=== PATIENT | male | born 1940 | race Caucasian/White ===

== ENCOUNTER 2017-08-27 02:11 | Inpatient (IN) | payer MEDICARE ==
[2017-08-27] MEDS ORDERED: NITROGLYCERIN SL TABS 0.4 MG TAB SUBLINGUAL PRN (03:26)
--- NOTE | 2017-08-27 03:27 | ED ---
General Adult HPI - General Chief complaint: Arrhythmia/Palpitations Stated complaint: Afib Time Seen by Provider: 08/27/17 02:51 Source: patient, EMS Mode of arrival: EMS Limitations: no limitations - Related Data Home Medications Medication Instructions Recorded Confirmed Warfarin Sodium [Warfarin Sodium] 5 mg PO DAILY 08/27/17 08/27/17 Allergies Allergy/AdvReac Type Severity Reaction Status Date / Time No Known Allergies Allergy Verified 08/27/17 02:18 Review of Systems ROS Statement: Those systems with pertinent positive or pertinent negative responses have been documented in the HPI. ROS Other: All systems not noted in ROS Statement are negative. Past Medical History Past Medical History: Atrial Fibrillation, Hyperlipidemia, Hypertension, Prostate Disorder, Sleep Apnea/CPAP/BIPAP Additional Past Medical History / Comment(s): hx pleural thickening, cpap, mesothelioma History of Any Multi-Drug Resistant Organisms: None Reported Past Surgical History: Orthopedic Surgery, Tonsillectomy Additional Past Surgical History / Comment(s): rt knee scope, lt eye cataract Past Anesthesia/Blood Transfusion Reactions: Motion Sickness Past Psychological History: No Psychological Hx Reported Smoking Status: Never smoker Past Alcohol Use History: None Reported Past Drug Use History: None Reported - Past Family History Mother Family Medical History: Cancer Additional Family Medical History / Comment(s): cancer Father Family Medical History: Pneumonia Additional Family Medical History / Comment(s): Mesothelioma General Exam Limitations: no limitations Course Vital Signs 08/27/17 02:15 Temperature 99.4 F Pulse Rate 74 Respiratory 20 Rate Blood Pressure 112/79 O2 Sat by Pulse 92 L Oximetry EKG Findings - EKG Comments: EKG Findings:: EKG shows A. fib with RVR rate 108, QRS 106, QTc 407 Disposition Clinical Impression: Atrial fibrillation with RVR Disposition: ADMITTED IP TO THIS HOSP Condition: Fair Is patient prescribed a controlled substance at d/c from ED?: No
[2017-08-27] MEDS: DILTIAZEM 50 MG in SODIUM CHLORIDE 0.9% 40 ML IV ONE ×2 (03:53→06:02)
[2017-08-27 04:48] LABS: Creatine Kinase <20 U/L (55-170)
[2017-08-27 05:00] LABS: Creatine Kinase MB <0.2 ng/mL (0.0-2.4); Troponin I <0.012 ng/mL (0.000-0.034)
[2017-08-27 05:25] VITALS: BMI 35.2
[2017-08-27] MEDS: ASPIRIN 325 MG TAB PO SCH (08:30)
[2017-08-27] MEDS: METOPROLOL TARTRATE 25 MG TAB PO SCH ×2 (08:30→19:32)
[2017-08-27] MEDS: DILTIAZEM 50 MG in SODIUM CHLORIDE 0.9% 40 ML IV SCH ×3 (09:59→21:46)
[2017-08-27] MEDS: VERAPAMIL 40 MG TAB PO SCH ×3 (09:59→19:32)
[2017-08-27 10:13] LABS: Creatine Kinase <20 U/L (55-170)
[2017-08-27 10:24] LABS: Creatine Kinase MB <0.2 ng/mL (0.0-2.4); Troponin I <0.012 ng/mL (0.000-0.034)
[2017-08-27] MEDS ORDERED: ALPRAZolam 0.25 MG TAB PO PRN (11:51)
[2017-08-27] MEDS ORDERED: traMADol 50 MG TAB PO PRN (11:51)
[2017-08-27] MEDS: ALBUTEROL NEBULIZED 2.5 MG/3 ML INHALATION PRN (12:00)
--- NOTE | 2017-08-27 13:17 | P.CRDCN ---
History of Present Illness History of present illness: Patient transferred from an outside hospital for shortness of breath. He is found to be in atrial fibrillation with RVR Denied any chest discomfort Review of systems: No fever chills or rigors, no cough, phlegm or expectoration , no nausea, vomiting or diarrhea, no hematuria, dysuria, no musculoskeletal complaints, no strokes or seizures, no skin lesions. Medical history of mesothelioma, right moderate pleural effusion, pleural calcifications, paroxysmal atrial fibrillation with RVR, dyslipidemia, hypertension, sleep apnea using a BiPAP Medications at home include warfarin Primary precision farming coordinator is Dr. Linda On examination his temperature was 99.4F upon admission, pulse rate was about 108 beats a minute irregular on ECG atrial fibrillation noted Blood pressure 112/79 mmHg Breath sounds are reduced bilaterally especially the right base Heart sounds S1 and S2 are irregular no murmurs no gallop Abdomen soft nontender Patient is lying flat in bed comfortable Labs are reviewed [place] enzymes are normal Impression Atrial fibrillation with RVR History of mesothelioma, pleural calcifications and right moderate pleural effusion Suggest Oral verapamil 40 mg 3 times a day Continue and granulation Coumadin We will stop IV diltiazem by tomorrow and switch to long-acting verapamil Past Medical History Past Medical History: Atrial Fibrillation, Hyperlipidemia, Hypertension, Prostate Disorder, Sleep Apnea/CPAP/BIPAP Additional Past Medical History / Comment(s): hx pleural thickening, cpap, mesothelioma History of Any Multi-Drug Resistant Organisms: None Reported Past Surgical History: Orthopedic Surgery, Tonsillectomy Additional Past Surgical History / Comment(s): rt knee scope, lt eye cataract Past Anesthesia/Blood Transfusion Reactions: Motion Sickness Past Psychological History: No Psychological Hx Reported Smoking Status: Never smoker Past Alcohol Use History: None Reported Past Drug Use History: None Reported - Past Family History Mother Family Medical History: Cancer Additional Family Medical History / Comment(s): cancer Father Family Medical History: Pneumonia Additional Family Medical History / Comment(s): Mesothelioma Medications and Allergies Home Medications Medication Instructions Recorded Confirmed Type ALPRAZolam [Xanax] 0.25 mg PO DAILY PRN 08/27/17 08/27/17 History Albuterol Inhaler [Ventolin Hfa 1 - 2 puff INHALATION RT-Q6H PRN 08/27/17 History Inhaler] Diltiazem HCl [Cartia Xt] 180 mg PO DAILY 08/27/17 08/27/17 History RX: Folic Acid 1 mg PO DAILY 08/27/17 08/27/17 History RX: Mirtazapine 7.5 mg PO HS 08/27/17 08/27/17 History Warfarin Sodium [Warfarin Sodium] 5 mg PO DAILY@1700 08/27/17 08/27/17 History traMADol HCL [Ultram] 50 mg PO Q6H PRN 08/27/17 08/27/17 History Allergies Allergy/AdvReac Type Severity Reaction Status Date / Time No Known Allergies Allergy Verified 08/27/17 09:09 Physical Exam Vitals: Vital Signs Temp Pulse Pulse Resp BP BP Pulse Ox 08/27/17 12:09 88 08/27/17 12:00 80 81 20 95/68 95 08/27/17 08:00 98.1 F 94 18 107/62 94 L 08/27/17 05:00 97.5 F L 85 18 115/75 95 08/27/17 02:15 99.4 F 74 20 112/79 92 L Intake and Output 08/26/17 08/27/17 08/27/17 22:59 06:59 14:59 Intake Total 32.25 Balance 32.25 Intake: Intake, IV Titration 32.25 Amount Diltiazem 50 mg In Sodium 32.25 Chloride 0.9% 40 ml @ 15 MG/HR 15 mls/hr IV . Q3H20M [facility] Rx#:[id number] Other: # Voids 1 1 Weight 117.934 kg Results Cardiac Enzymes 08/27/17 08/27/17 Range/Units 03:40 09:28 CK-MB (CK-2) <0.2 <0.2 (0.0-2.4) ng/mL Troponin I <0.012 <0.012 (0.000-0.034) ng/mL Current Medications Generic Name Dose Route Start Last Admin Trade Name Freq PRN Reason Stop Dose Admin Albuterol Sulfate 2.5 mg 08/27/17 11:51 08/27/17 12:00 Ventolin Nebulized INHALATION 2.5 mg RT-Q6H PRN Administration SOB/BREATHING PAIN Alprazolam 0.25 mg 08/27/17 11:51 Xanax PO DAILY PRN Anxiety Aspirin 325 mg 08/28/17 09:00 Aspirin PO DAILY [facility] Folic Acid 1 mg 08/28/17 12:00 Folic Acid PO DAILY@1200 [facility] Diltiazem HCl 50 mg/ Sodium 50 mls @ 10 mls/hr 08/27/17 08:45 08/27/17 09:59 Chloride IV 10 mg/hr .Q5H [facility] 10 mls/hr 10 MG/HR Administration Metoprolol Tartrate 25 mg 08/27/17 09:00 08/27/17 08:30 Lopressor PO 25 mg BID [facility] Administration Mirtazapine 7.5 mg 08/27/17 21:00 Remeron PO HS [facility] Nitroglycerin 0.4 mg 08/27/17 03:26 Nitrostat SUBLINGUAL Q5M PRN Chest Pain Tramadol HCl 50 mg 08/27/17 11:51 08/27/17 12:27 Ultram PO 50 mg Q6H PRN Administration Pain Verapamil HCl 40 mg 08/27/17 09:00 08/27/17 09:59 Isoptin PO 40 mg TID [facility] Administration Warfarin Sodium 5 mg 08/27/17 17:00 Coumadin PO DAILY@1700 [facility] Intake and Output 08/26/17 08/27/17 08/27/17 22:59 06:59 14:59 Intake Total 32.25 Balance 32.25 Intake: Intake, IV Titration 32.25 Amount Diltiazem 50 mg In Sodium 32.25 Chloride 0.9% 40 ml @ 15 MG/HR 15 mls/hr IV . Q3H20M [facility] Rx#:[id number] Other: # Voids 1 1 Weight 117.934 kg
[2017-08-27 13:20] LABS: INR 2.8 (<1.2); Prothrombin Time 25.4 sec (9.0-12.0)
--- NOTE | 2017-08-27 16:43 | P.HPIM ---
History of Present Illness H&P Date: 08/27/17 Chief Complaint: Shortness of breath Patient is a 77-year-old male with a known history of atrial fibrillation on anticoagulation and mesothelioma diagnosed fairly at this year obstructive sleep apnea initially presented to [facility] with complaints of difficulty breathing and weakness for the past 2 days. Patient also has nausea no episodes of vomiting. Patient describes some diffuse abdominal pain. Otherwise denied any chest pain. No recent illness and diarrhea. Patient is currently getting chemotherapy, last chemotherapy at the [facility] was on Sunday. Patient also has been having decreased appetite for the past 2 days. Patient has not been eating very well otherwise. No fever no chills. No headache or dizziness or lightheadedness. Chest x-ray showed redemonstration of a moderate layering right pleural effusion and right basilar airspace disease likely compressive atelectasis as well as extensive pleural thickening and pleural calcified plaques compatible with patient's known diagnosis of mesothelioma. CT abdomen and pelvis with contrast showed extensive pleural calcification. Right pleural effusion consistent with history of mesothelioma. No acute abnormality seen within the abdomen and pelvis. Sigmoid diverticulosis. Renal left cortical cyst. BNP 1400 Troponin negative. EKG showed atrial fibrillation with rapid ventricular rate. INR 2.8 Laboratory data and imaging studies were reviewed from [facility]. Review of Systems Constitutional: Patient denies any fever or chills . Generalized weakness.. Abdomen: Patient denied nausea vomiting and diarrhea and abdominal pain. Cardiovascular: Patient denies any chest pain or short of breath no palpitations. Respiratory: patient denied any cough is from production. No shortness of breath Neurologic: Patient denied any numbness or tingling headache. Musculoskeletal: Patient denies any complaints of joint swelling or deformity. Skin: Negative Psychiatric: Negative Endocrine: No heat or cold intolerance. No recent weight gain. Genitourinary: No dysuria or hematuria. All other 14 point ROS negative except the above Past Medical History Past Medical History: Atrial Fibrillation, Hyperlipidemia, Hypertension, Prostate Disorder, Sleep Apnea/CPAP/BIPAP Additional Past Medical History / Comment(s): hx pleural thickening, cpap, mesothelioma History of Any Multi-Drug Resistant Organisms: None Reported Past Surgical History: Orthopedic Surgery, Tonsillectomy Additional Past Surgical History / Comment(s): rt knee scope, lt eye cataract Past Anesthesia/Blood Transfusion Reactions: Motion Sickness Past Psychological History: No Psychological Hx Reported Smoking Status: Never smoker Past Alcohol Use History: None Reported Past Drug Use History: None Reported - Past Family History Mother Family Medical History: Cancer Additional Family Medical History / Comment(s): cancer Father Family Medical History: Pneumonia Additional Family Medical History / Comment(s): Mesothelioma Medications and Allergies Home Medications Medication Instructions Recorded Confirmed Type ALPRAZolam [Xanax] 0.25 mg PO DAILY PRN 08/27/17 08/27/17 History Albuterol Inhaler [Ventolin Hfa 1 - 2 puff INHALATION RT-Q6H PRN 08/27/17 History Inhaler] Diltiazem HCl [Cartia Xt] 180 mg PO DAILY 08/27/17 08/27/17 History Folic Acid 1 mg PO DAILY 08/27/17 08/27/17 History Mirtazapine 7.5 mg PO HS 08/27/17 08/27/17 History Warfarin Sodium [Warfarin Sodium] 5 mg PO DAILY@1700 08/27/17 08/27/17 History traMADol HCL [Ultram] 50 mg PO Q6H PRN 08/27/17 08/27/17 History Allergies Allergy/AdvReac Type Severity Reaction Status Date / Time No Known Allergies Allergy Verified 08/27/17 09:09 Physical Exam Vitals: Vital Signs Temp Pulse Pulse Resp BP BP Pulse Ox 08/27/17 08:00 98.1 F 94 18 107/62 94 L 08/27/17 05:00 97.5 F L 85 18 115/75 95 08/27/17 02:15 99.4 F 74 20 112/79 92 L Intake and Output 08/26/17 08/27/17 08/27/17 22:59 06:59 14:59 Intake Total 32.25 Balance 32.25 Intake: Intake, IV Titration 32.25 Amount Diltiazem 50 mg In Sodium 32.25 Chloride 0.9% 40 ml @ 15 MG/HR 15 mls/hr IV . Q3H20M [facility] Rx#:[id number] Other: # Voids 1 1 Weight 117.934 kg PHYSICAL EXAMINATION: Patient is lying in the bed comfortably, no acute distress, awake alert and oriented.. HEENT: Normocephalic. Neck is supple. Pupils reactive. Nostrils clear. Oral cavity is moist. Ears reveal no drainage. Neck reveals no JVD, carotid bruits, or thyromegaly. CHEST EXAMINATION: Trachea is central. Symmetrical expansion. Left basilar crackles and rhonchi. Expiratory wheezing mainly upper in airway. Lung campos clear to auscultation and percussion. CARDIAC: Normal S1, S2 with no gallops. No murmurs . Irregularly irregular rhythm ABDOMEN: Soft. Bowel sounds normal. No organomegaly. No abdominal bruits. Extremities: reveal no edema. No clubbing or cyanosis Neurologically awake, alert, oriented x3 with well-coordinated movements. No focal deficits noted Skin: No rash or skin lesions. Psychiatric: Cooperative. Nonsuicidal Musculoskeletal: No joint swelling or deformity. Normal range of motion. Results Labs: Abnormal Lab Results - Last 24 Hours (Table) 08/27/17 08/27/17 Range/Units 03:40 09:28 Total Creatine Kinase <20 L <20 L (55-170) U/L Thrombosis Risk Factor Assmnt - DVT/VTE Prophylaxis DVT/VTE Prophylaxis: Pharmacologic Prophylaxis ordered - Choose All That Apply Any of the Below Risk Factors Present?: Yes Each Factor Represents 1 point: Obesity (BMI >25) Other Risk Factors: Yes Each Risk Factor Represents 3 Points: Age 75 years or older Other congenital or acquired thrombophilia - If yes, enter type in comment: No Thrombosis Risk Factor Assessment Total Risk Factor Score: 4 Thrombosis Risk Factor Assessment Level: Moderate Risk Assessment and Plan Assessment: Atrial fibrillation with rapid regular rate. Currently on Cardizem drip. Mesothelioma with extensive pleural calcification. Currently undergoing chemotherapy at [facility] last on 08/21/2017 Obstructive sleep apnea Morbid obesity Plan: Patient will be continued on Cardizem drip. Otherwise patient was started on verapamil as per cardiology recommendations. Patient is also on metoprolol. Continue the anti-coagulation with Coumadin. Follow-up INR. Continue the current management and further recommendations based on the clinical course. Discussed with his son at bedside in detail. Time with Patient: Greater than 30
[2017-08-27] MEDS: WARFARIN 5 MG TAB PO SCH (16:46)
[2017-08-27] MEDS: MIRTAZAPINE 15 MG TAB PO SCH (19:32)
[2017-08-28 05:26] LABS: Cholesterol 173 mg/dL (<200); HDL Cholesterol 40 mg/dL (40-60); LDL Cholesterol,Calculated 113 mg/dL (0-99); Triglycerides 102 mg/dL (<150)
[2017-08-28] MEDS ORDERED: VERAPAMIL SR 120 MG TABLET.ER PO SCH (09:00)
[2017-08-28] MEDS: DILTIAZEM 50 MG in SODIUM CHLORIDE 0.9% 40 ML IV SCH (09:49)
[2017-08-28] MEDS: ASPIRIN 325 MG TAB PO SCH ×2 (09:50→10:46)
[2017-08-28] MEDS: METOPROLOL TARTRATE 25 MG TAB PO SCH ×2 (09:50→20:32)
[2017-08-28] MEDS: ALBUTEROL NEBULIZED 2.5 MG/3 ML INHALATION PRN ×2 (11:03→19:01)
--- NOTE | 2017-08-28 14:25 | P.PN ---
Subjective Progress Note Date: 08/28/17 Principal diagnosis: A. adrianna This is a 77-year-old gentleman with known history of atrial fibrillation, on anticoagulation, history of mesothelioma, obstructive sleep apnea, currently undergoing chemotherapy. He initially presented to [facility] with complaints of difficulty in breathing with associated weakness. Cardiology consultation was requested because of atrial fibrillation with a rapid ventricular response. The patient was seen in consultation by Dr. Bazan yesterday, today we initiated verapamil SR 180 mg daily, we're weaning down the Cardizem drip. The patient's primary singing teacher is Dr. Linda. Patient continues to be in atrial fibrillation, his rate today is under much better control. Chest x-ray performed this morning is still pending. INR 2.8. Objective - Vital Signs Vital signs: Vital Signs Temp 98.8 F 08/28/17 08:00 Pulse 104 H 08/28/17 11:30 Resp 19 08/28/17 11:30 BP 110/69 08/28/17 11:30 Pulse Ox 94 L 08/28/17 11:30 Intake & Output 08/27/17 08/28/17 08/28/17 18:59 06:59 18:59 Intake Total 168 50 Balance 168 50 Weight 117.934 kg 121.6 kg Intake: Intake, IV Titration 50 50 Amount Diltiazem 50 mg In Sodium 50 50 Chloride 0.9% 40 ml @ 10 MG/HR 10 mls/hr IV .Q5H [facility] Rx#:[id number] Oral 118 Other: Voiding Method Toilet # Voids 1 2 # Bowel Movements 0 - Exam PHYSICAL EXAMINATION: GENERAL: 77-year-old gentleman in no apparent distress at the time of my examination. HEENT: Head is atraumatic, normocephalic. Pupils equal, round. Sclera anicteric. Conjunctiva are clear. Mucous membranes of the mouth are moist. Neck is supple. There is no elevated jugular venous pressure.] bruit is heard. HEART EXAMINATION: Heart S1 and S2 irregularly irregular CHEST EXAMINATION: On's reveal diminished air entry to bilateral bases. Right greater than the left. ABDOMEN: Soft, nontender. Bowel sounds are heard. No organomegaly noted. EXTREMITIES: 2+ peripheral pulses with no evidence of peripheral edema and no calf tenderness noted. NEUROLOGIC patient is awake, alert and oriented -3. . - Labs Labs: Abnormal Lab Results - Last 24 Hours (Table) 08/27/17 Range/Units 09:28 LDL Cholesterol, Calc 113 H (0-99) mg/dL Assessment and Plan Plan: Assessment and plan #1 chronic persistent atrial fibrillation #2 mesothelioma currently receiving chemotherapy #3 hypertension #4 hyperlipidemia Number 5 sleep apnea Plan We will start the patient on verapamil SR 180 mg daily and discontinue the Cardizem drip. Continue Coumadin for anticoagulation. From cardiology's perspective, patient can be discharged once cleared by primary, he can follow- up with his singing teacher post discharge. DNP note has been reviewed, I agree with a documented findings and plan of care. Patient was seen and examined.
--- NOTE | 2017-08-28 15:42 | P.PN ---
Subjective 77-year-old with history of mesothelioma chronic pleural effusion does not using any oxygen at home came in with difficulty breathing found to be in atrial fibrillation patient is presently on 2 L of oxygen and doesn't use any oxygen at home after the chest x-ray which is showing pleural effusions bilaterally significant on the right side. Patient appears to have chronic pleural effusion was evaluated in the past in [facility] by cardiac thoracic surgery. But patient never used oxygen. Patient atrial fibrillation is well controlled and patient is presently an increase the dose of Verapamil. Patient feels much better with AN nighttime as well. Patient is still short of breath. Constitutional: Denied any fatigue denied any fever. Cardio vascular: denied any chest pain, palpitations Gastrointestinal denied any nausea vomiting Pulmonary: As mentioned in HPI Neurologic denied any new focal deficits Objective - Vital Signs Vital signs: Vital Signs Temp 98.8 F 08/28/17 08:00 Pulse 104 H 08/28/17 11:30 Resp 19 08/28/17 11:30 BP 110/69 08/28/17 11:30 Pulse Ox 94 L 08/28/17 11:30 Intake & Output 08/27/17 08/28/17 08/28/17 18:59 06:59 18:59 Intake Total 168 50 Output Total 300 Balance 168 50 -300 Weight 117.934 kg 121.6 kg Intake: Intake, IV Titration 50 50 Amount Diltiazem 50 mg In Sodium 50 50 Chloride 0.9% 40 ml @ 10 MG/HR 10 mls/hr IV .Q5H [facility] Rx#:[id number] Oral 118 Output: Urine 300 Other: Voiding Method Toilet # Voids 1 2 # Bowel Movements 0 - Exam PHYSICAL EXAMINATION: Patient is lying in the bed comfortably, no acute distress, awake alert and oriented.. HEENT: Normocephalic. Neck is supple. Pupils reactive. Nostrils clear. Oral cavity is moist. Ears reveal no drainage. Neck reveals no JVD, carotid bruits, or thyromegaly. CHEST EXAMINATION: Trachea is central. Symmetrical expansion. Left basilar crackles and rhonchi. Expiratory wheezing mainly upper in airway. Lung campos clear to auscultation and percussion. CARDIAC: Normal S1, S2 with no gallops. No murmurs . Irregularly irregular rhythm ABDOMEN: Soft. Bowel sounds normal. No organomegaly. No abdominal bruits. Extremities: reveal no edema. No clubbing or cyanosis Neurologically awake, alert, oriented x3 with well-coordinated movements. No focal deficits noted Skin: No rash or skin lesions. Psychiatric: Cooperative. Nonsuicidal Musculoskeletal: No joint swelling or deformity. Normal range of motion. - Labs Labs: Abnormal Lab Results - Last 24 Hours (Table) 08/27/17 Range/Units 09:28 LDL Cholesterol, Calc 113 H (0-99) mg/dL Assessment and Plan Plan: Acute hypoxic respiratory failure: Secondary to bilateral pleural effusions predominantly in the right side, we'll consult cardio thoracic surgery and pulmonary services for this. Atrial fibrillation may have contributed to his shortness of breath presently rate controlled in spite of which patient remains on 2 L Floxin -A. fib with rapid ventricular rate, presently rate controlled on increased dose of verapamil which will be continued -Mesothelioma with extensive pleural calcifications and pleural effusions as mentioned above. Follows up at [facility], last chemotherapy was on Sunday -Hypertension -Hyperlipidemia -Sleep apnea and uses CPAP machine at home -Benign prostatic hypertrophy
--- NOTE | 2017-08-28 15:45 | XR ---
EXAMINATION TYPE: XR chest 2V DATE OF EXAM: 08/28/2017 COMPARISON: NONE HISTORY: Shortness of breath and mesothelioma TECHNIQUE: Frontal and lateral views of the chest are obtained. FINDINGS: Lobular soft tissue is pleural-based within the right chest. Calcified pleural plaques are extensive. No evident pneumothorax. Heart is enlarged. There are overlying cardiac leads. Increased density obscures the right hemidiaphragm. Interstitium is mildly increased. IMPRESSION: Findings compatible with patient's history of mesothelioma, asbestos related disease. Th ere may be associated pneumonia versus an effusion with associated atelectasis, correlate.
[2017-08-28] MEDS: WARFARIN 5 MG TAB PO SCH (16:12)
[2017-08-28] MEDS: FOLIC ACID 1 MG TAB PO SCH (16:12)
[2017-08-28] MEDS: MIRTAZAPINE 15 MG TAB PO SCH (20:32)
[2017-08-29 07:20] LABS: HCT 30.6 % (39.0-53.0); HGB 10.1 gm/dL (13.0-17.5); MCH 31.2 pg (25.0-35.0); MCHC 33.2 g/dL (31.0-37.0); Mean Platelet Volume 6.8; Platelet Count 119 k/uL (150-450); RBC 3.25 m/uL (4.30-5.90); RDW 15.6 % (11.5-15.5); WBC 3.3 k/uL (3.8-10.6)
[2017-08-29 07:31] LABS: Blood Urea Nitrogen 14 mg/dL (9-20); Calcium 8.3 mg/dL (8.4-10.2); Carbon Dioxide 28 mmol/L (22-30); Glucose 119 mg/dL (74-99); Potassium 4.1 mmol/L (3.5-5.1); Sodium 137 mmol/L (137-145)
[2017-08-29 07:44] LABS: Anion Gap 10 mmol/L; Chloride 99 mmol/L (98-107)
[2017-08-29] MEDS ORDERED: ONDANSETRON ODT 4 MG TAB PO PRN (08:07)
[2017-08-29 08:26] LABS: Prothrombin Time 35.7 sec (9.0-12.0)
[2017-08-29] MEDS ORDERED: VERAPAMIL SR 180 MG TABLET.ER PO SCH (09:00)
[2017-08-29] MEDS ORDERED: ASPIRIN 81 MG PO SCH (09:00)
[2017-08-29] MEDS: METOPROLOL TARTRATE 25 MG TAB PO SCH (10:25)
[2017-08-29 10:59] VITALS: RESP 18
--- NOTE | 2017-08-29 12:50 | P.CNPUL ---
History of Present Illness Consult date: 08/29/17 Requesting physician: Kari Cummings Reason for consult: dyspnea, abnormal CXR/CT Chief complaint: Shortness of breath, palpitations History of present illness: This is a very pleasant 77-year-old gentleman who follows with Dr. Lopez as his primary care physician. He has a history of atrial fibrillation anticoagulated with warfarin, hyperlipidemia, hypertension, prostate disorder, obstructive sleep apnea and utilizes CPAP in the outpatient setting. He follows with Dr. Matthews. He also has a history of mesothelioma diagnosed by fine needle aspirate at [facility] in February 2017. He has been followed at the [facility] and was receiving chemotherapy there. He is also followed here at [facility] with Dr. Velasco for radiation treatments to the right upper lobe. He has has loculated right-sided pleural effusion in the [facility] cardiothoracic team has decided not to perform any procedures. He presented here yesterday to the emergency room with complaints of increasing shortness of breath, palpitations and rapid heartbeat. He was admitted for atrial fibrillation with rapid ventricular response. He has been seen and evaluated by cardiology. He is seen today in consultation on the selective care unit. He is awake and alert in no acute distress. His breathing is easier today. His rate is better controlled. His chest x-ray does reveal a findings compatible with mesothelioma and asbestos related disease. There is right chronic pleural effusion. He is utilizing his home CPAP at night. He is currently maintaining good O2 saturations in the upper 90s on 2 L/m per nasal cannula. Currently afebrile. White count 3.3. Hemoglobin 10.1. INR 4.0. Review of Systems Constitutional: Reports weakness Eyes: denies blurred vision, denies decreased vision Ears: bilateral: decreased hearing Ears, nose, mouth and throat: Denies headache, Denies sore throat Cardiovascular: Reports dyspnea on exertion, Reports irregular heart beat, Reports palpitations, Reports rapid heart beat Respiratory: Reports dyspnea, Reports sleep apnea Gastrointestinal: Denies abdominal pain, Denies diarrhea, Denies nausea, Denies vomiting Genitourinary: Reports as per HPI Musculoskeletal: Denies myalgias Integumentary: Denies pruritus, Denies rash Neurological: Denies numbness, Denies weakness Psychiatric: Denies anxiety, Denies depression Endocrine: Denies fatigue, Denies weight change Hematologic/Lymphatic: Reports as per HPI Allergic/Immunologic: Reports as per HPI Past Medical History Past Medical History: Atrial Fibrillation, Hyperlipidemia, Hypertension, Prostate Disorder, Sleep Apnea/CPAP/BIPAP Additional Past Medical History / Comment(s): hx pleural thickening, cpap, mesothelioma History of Any Multi-Drug Resistant Organisms: None Reported Past Surgical History: Orthopedic Surgery, Tonsillectomy Additional Past Surgical History / Comment(s): rt knee scope, lt eye cataract Past Anesthesia/Blood Transfusion Reactions: Motion Sickness Past Psychological History: No Psychological Hx Reported Smoking Status: Never smoker Past Alcohol Use History: None Reported Past Drug Use History: None Reported - Past Family History Mother Family Medical History: Cancer Additional Family Medical History / Comment(s): cancer Father Family Medical History: Pneumonia Additional Family Medical History / Comment(s): Mesothelioma Medications and Allergies Home Medications Medication Instructions Recorded Confirmed Type ALPRAZolam [Xanax] 0.25 mg PO DAILY PRN 08/27/17 08/27/17 History Albuterol Inhaler [Ventolin Hfa 1 - 2 puff INHALATION RT-Q6H PRN 08/27/17 History Inhaler] Diltiazem HCl [Cartia Xt] 180 mg PO DAILY 08/27/17 08/27/17 History Folic Acid 1 mg PO DAILY 08/27/17 08/27/17 History Mirtazapine 7.5 mg PO HS 08/27/17 08/27/17 History Warfarin Sodium [Warfarin Sodium] 5 mg PO DAILY@1700 08/27/17 08/27/17 History traMADol HCL [Ultram] 50 mg PO Q6H PRN 08/27/17 08/27/17 History Allergies Allergy/AdvReac Type Severity Reaction Status Date / Time No Known Allergies Allergy Verified 08/27/17 09:09 Physical Exam Osteopathic Statement: *. No significant issues noted on an osteopathic structural exam other than those noted in the History and Physical/Consult. Vitals: Vital Signs Temp Pulse Pulse Resp BP Pulse Ox 08/29/17 08:00 97.6 F 113 H 18 104/73 96 08/29/17 04:00 99.0 F 108 H 16 123/68 97 08/29/17 00:00 99.3 F 107 H 18 124/67 94 L 08/28/17 20:20 98.9 F 111 H 18 112/68 93 L 08/28/17 19:15 100 08/28/17 19:04 99 08/28/17 16:00 105 H 18 104/65 94 L Intake and Output 08/28/17 08/29/17 08/29/17 22:59 06:59 14:59 Intake Total 480 240 Balance 480 240 Intake: Oral 480 240 Other: Voiding Method Toilet Toilet # Voids 1 1 Weight 120 kg - Constitutional General appearance: obese - EENT Eyes: EOMI, PERRLA ENT: hearing grossly normal Ears: bilateral: normal - Neck Neck: normal ROM Carotids: bilateral: upstroke normal Thyroid: bilateral: normal size - Respiratory Respiratory: right: rales - Cardiovascular Rhythm: irregularly irregular Heart sounds: normal: S1, S2 - Gastrointestinal General gastrointestinal: no organomegaly, soft, no tenderness - Integumentary Integumentary: normal turgor - Neurologic Neurologic: CNII-XII intact - Musculoskeletal Musculoskeletal: gait normal - Psychiatric Psychiatric: A&O x's 3, intact judgment & insight Results - Laboratory Findings CBC and BMP: 08/29/17 06:39 08/29/17 06:39 PT/INR, D-dimer PT 35.7 sec (9.0-12.0) H 08/29/17 07:41 INR 4.0 (<1.2) H 08/29/17 07:41 Abnormal lab findings: Abnormal Labs 08/27/17 08/27/17 08/27/17 03:40 09:28 09:28 WBC RBC Hgb Hct RDW Plt Count PT INR Glucose Calcium Total Creatine Kinase <20 L <20 L LDL Cholesterol, Calc 113 H 08/27/17 08/29/17 08/29/17 12:59 06:39 06:39 WBC 3.3 L RBC 3.25 L Hgb 10.1 L Hct 30.6 L RDW 15.6 H Plt Count 119 L PT 25.4 H INR 2.8 H Glucose 119 H Calcium 8.3 L Total Creatine Kinase LDL Cholesterol, Calc 08/29/17 07:41 WBC RBC Hgb Hct RDW Plt Count PT 35.7 H INR 4.0 H Glucose Calcium Total Creatine Kinase LDL Cholesterol, Calc - Diagnostic Findings Chest x-ray: image reviewed Assessment and Plan Assessment: Impression: #1 Atrial fibrillation with rapid ventricular response. Anticoagulated with warfarin #2 Dyspnea secondary to above. #3 Mesothelioma, currently receiving chemotherapy at the [facility] and radiation therapy here at [facility]. #4 Hypertension. #5 Hyperlipidemia. #6 Prostate disorder. #7 Obstructive sleep apnea utilizing CPAP in the outpatient setting. Plan: The patient was seen and evaluated. He is currently stable from the pulmonary standpoint. No further plans or interventions here in regards to the mesothelioma. He'll continue with his radiation treatments as scheduled. The cardiothoracic team at the [facility] had not planned any further intervention in regards to the right pleural effusion. We will continue with his current treatment plan. Will increase his activity as tolerated. We'll continue to follow. Time with Patient: Greater than 30
--- NOTE | 2017-08-29 13:29 | P.GSCN ---
<Edmond Szymanski - Last Filed: 08/29/17 12:53> History of Present Illness Consult date: 08/29/17 Reason for Consult: Right pleural effusion, mesothelioma. Requesting physician: Ivanna Westfall History of present illness: This is a 77-year-old gentleman who follows with Dr. Green or an outpatient basis. He has a medical history significant for chronic persistent atrial fibrillation on Coumadin therapy at home, hypertension, hyperlipidemia, obesity , obstructive sleep apnea with home CPAP, benign prostatic hypertrophy, and recent diagnosis of mesothelioma which was diagnosed by fine needle aspirate at [facility] in February 2017. He has been following with an oncologist at [facility] where he has been receiving chemotherapy. He has also has received 6 treatments of radiation here at [facility] followed by Dr. Velasco. In July 2016 he was diagnosed with a loculated right pleural effusion which she had seen a cardiothoracic surgeon at [facility] who recommended no surgical intervention at that time. The patient reports that the thoracic surgeon stated that if the fluid was removed his lung would not reexpand. On 08/26/2017 the patient presented to the emergency department at [facility] due to complaints of progressive shortness of breath, 40 pound weight loss since March 2017, an anxiety attack, nausea and complaints of rapid heartbeat with palpitations. He denies any complaints of fever, vomiting, diarrhea, hemoptysis , dizziness or syncope. While in the emergency department a 12-lead EKG was completed which demonstrated atrial fibrillation with RVR. A chest x-ray was also completed which demonstrated findings compatible with a history of mesothelioma and a chronic loculated right pleural effusion. His current lab results show a WBC 3.3, Hgb 10.1, platelet count of 119, troponins less than 0.012 and an INR of 4.0. Due to the patient's presenting symptoms and loculated right pleural effusion a consult was placed to Dr. Bai from cardiothoracic surgery. Review of Systems A 14 point review of systems was completed and was negative except as mentioned in HPI. Past Medical History Past Medical History: Atrial Fibrillation (On home Coumadin.), Cancer, Hyperlipidemia, Hypertension, Prostate Disorder, Respiratory Disorder, Sleep Apnea/CPAP/BIPAP Additional Past Medical History / Comment(s): hx pleural thickening, home CPAP, mesothelioma History of Any Multi-Drug Resistant Organisms: None Reported Past Surgical History: Orthopedic Surgery, Tonsillectomy Additional Past Surgical History / Comment(s): rt knee scope, lt eye cataract, hemorrhoidectomy Past Anesthesia/Blood Transfusion Reactions: Motion Sickness Past Psychological History: No Psychological Hx Reported Smoking Status: Never smoker Past Alcohol Use History: None Reported Past Drug Use History: None Reported - Past Family History Mother Family Medical History: Cancer Additional Family Medical History / Comment(s): Breast cancer Father Family Medical History: Pneumonia Additional Family Medical History / Comment(s): Mesothelioma Medications and Allergies Home Medications Medication Instructions Recorded Confirmed Type ALPRAZolam [Xanax] 0.25 mg PO DAILY PRN 08/27/17 08/27/17 History Albuterol Inhaler [Ventolin Hfa 1 - 2 puff INHALATION RT-Q6H PRN 08/27/17 History Inhaler] Folic Acid 1 mg PO DAILY 08/27/17 08/27/17 History Mirtazapine 7.5 mg PO HS 08/27/17 08/27/17 History traMADol HCL [Ultram] 50 mg PO Q6H PRN 08/27/17 08/27/17 History Metoprolol Tartrate [Lopressor] 25 mg PO BID #60 tab 08/29/17 Rx Verapamil Sr [Isoptin Sr] 180 mg PO DAILY #30 tablet.er 08/29/17 Rx Warfarin [Coumadin] 4 mg PO DAILY #30 tab 08/29/17 Rx Allergies Allergy/AdvReac Type Severity Reaction Status Date / Time No Known Allergies Allergy Verified 08/27/17 09:09 Surgical - Exam Vital Signs Temp Pulse Resp BP Pulse Ox 99.4 F 74 20 112/79 92 L 08/27/17 02:15 08/27/17 02:15 08/27/17 02:15 08/27/17 02:15 08/27/17 02:15 - General well developed, well nourished, no distress, no pain, obese - Eyes PERRL, normal ocular movement - ENT normal pinna, normal nares, normal mucosa, no hearing loss, no congestion - Neck No lymphadenopathy, neck is supple. no masses, no bruits, trachea midline, no venous distension - Respiratory Lung sounds are essentially clear throughout, diminished to his right lower lobe , few scattered crackles to his bilateral bases. Respirations are symmetrical and nonlabored. Oxygen saturation are 96% on 2 L nasal cannula. - Cardiovascular Irregular rhythm with tachycardic rate. S1 and S2 present, negative for S3, gallop or murmur. Remote telemetry showing atrial fibrillation heart rate 117 bpm. No edema present. - Abdomen Abdomen is soft, nontender and nondistended. Obese. Active bowel sounds all 4 abdominal quadrants. No guarding or rigidity. No organomegaly. - Genitourinary Deferred - Rectum Deferred - Integumentary no rash, no growths, no abnormal pigmentation - Neurologic normal coordination, normal sensation - Musculoskeletal normal gait, normal posture - Psychiatric oriented to time, oriented to person, oriented to place, speech is normal, memory intact Results - Labs 08/29/17 06:39 08/29/17 06:39 Abnormal Lab Results - Last 24 Hours (Table) 08/29/17 08/29/17 08/29/17 Range/Units 06:39 06:39 07:41 WBC 3.3 L (3.8-10.6) k/uL RBC 3.25 L (4.30-5.90) m/uL Hgb 10.1 L (13.0-17.5) gm/dL Hct 30.6 L (39.0-53.0) % RDW 15.6 H (11.5-15.5) % Plt Count 119 L (150-450) k/uL PT 35.7 H (9.0-12.0) sec INR 4.0 H (<1.2) Glucose 119 H (74-99) mg/dL Calcium 8.3 L (8.4-10.2) mg/dL Diabetes panel 08/29/17 Range/Units 06:39 Sodium 137 (137-145) mmol/L Potassium 4.1 (3.5-5.1) mmol/L Chloride 99 (98-107) mmol/L Carbon Dioxide 28 (22-30) mmol/L BUN 14 (9-20) mg/dL Creatinine 0.70 (0.66-1.25) mg/dL Glucose 119 H (74-99) mg/dL Calcium 8.3 L (8.4-10.2) mg/dL Calcium panel 08/29/17 Range/Units 06:39 Calcium 8.3 L (8.4-10.2) mg/dL Pituitary panel 08/29/17 Range/Units 06:39 Sodium 137 (137-145) mmol/L Potassium 4.1 (3.5-5.1) mmol/L Chloride 99 (98-107) mmol/L Carbon Dioxide 28 (22-30) mmol/L BUN 14 (9-20) mg/dL Creatinine 0.70 (0.66-1.25) mg/dL Glucose 119 H (74-99) mg/dL Calcium 8.3 L (8.4-10.2) mg/dL Adrenal panel 08/29/17 Range/Units 06:39 Sodium 137 (137-145) mmol/L Potassium 4.1 (3.5-5.1) mmol/L Chloride 99 (98-107) mmol/L Carbon Dioxide 28 (22-30) mmol/L BUN 14 (9-20) mg/dL Creatinine 0.70 (0.66-1.25) mg/dL Glucose 119 H (74-99) mg/dL Calcium 8.3 L (8.4-10.2) mg/dL - Imaging Chest x-ray: report reviewed, image reviewed EKG: image reviewed Assessment and Plan (1) Recurrent right pleural effusion Status: Acute Code(s): J90 - PLEURAL EFFUSION, NOT ELSEWHERE CLASSIFIED SNOMED Code(s): 48861645 (2) Mesothelioma Status: Acute Code(s): C45.9 - MESOTHELIOMA, UNSPECIFIED SNOMED Code(s): 517167157 (3) Obesity (BMI 35.0-39.9 without comorbidity) Status: Acute Code(s): E66.9 - OBESITY, UNSPECIFIED SNOMED Code(s): 806209444 (4) Atrial fibrillation with RVR Status: Acute Code(s): I48.91 - UNSPECIFIED ATRIAL FIBRILLATION SNOMED Code( s): 790397532919566 Plan: The patient was seen and examined. His chart and diagnostics were reviewed. Patient was seen and examined by Dr. Bai from cardiothoracic surgery. No surgical intervention recommended at this time. Continue to treat with medical therapy. Follow-up with his thoracic surgeon at [facility] as scheduled. Thank you Dr. Westfall for this consult, we will follow the patient on a when necessary status. Time with Patient: Greater than 30 <Brian Bai - Last Filed: 08/31/17 10:02> Surgical - Exam Vital Signs Temp Pulse Resp BP Pulse Ox 99.4 F 74 20 112/79 92 L 08/27/17 02:15 08/27/17 02:15 08/27/17 02:15 08/27/17 02:15 08/27/17 02:15 Results - Labs 08/29/17 06:39 08/29/17 06:39 Assessment and Plan Plan: The patient was seen and examined. The history and physical findings were verified. I agree with the above assessment and plan. The patient is a 77-year -old male who was recently diagnosed with malignant mesothelioma. He follows up at [facility] for his care. He has already started chemotherapy. He was recently admitted to [facility] secondary to shortness of breath. He was noted to be in atrial fibrillation with rapid ventricular response. Now that the rate is controlled, his dyspnea has improved. His most recent imaging studies do reveal some fluid in the right pleural space which is the side of his cancer. He was told at [facility] that this fluid should not be drained. In any event there is no plan for surgical intervention on my part. He'll continue to receive care for his malignant mesothelioma as outlined by his oncologist and thoracic surgeon.
--- NOTE | 2017-08-29 14:10 | P.PN ---
Subjective Progress Note Date: 08/29/17 Principal diagnosis: A. fib This is a 77-year-old gentleman with known history of atrial fibrillation, on anticoagulation, history of mesothelioma, obstructive sleep apnea, currently undergoing chemotherapy. He initially presented to [facility] with complaints of difficulty in breathing with associated weakness. Cardiology consultation was requested because of atrial fibrillation with a rapid ventricular response. The patient was seen in consultation by Dr. Bazan yesterday, today we initiated verapamil SR 180 mg daily, we're weaning down the Cardizem drip. The patient's primary clerical assistant is Dr. Linda. Patient continues to be in atrial fibrillation, his rate today is under much better control. Chest x-ray performed this morning is still pending. INR 2.8. 08/29/2017 Patient seen and examined this morning, heart rate in the 80s, continues to be in A. fib. We will continue his current medications. He may be able to be discharged home from our perspective to follow-up with his clerical assistant, Dr. Linda post discharge Objective - Vital Signs Vital signs: Vital Signs Temp 97.6 F 08/29/17 08:00 Pulse 113 H 08/29/17 08:00 Resp 18 08/29/17 08:00 BP 104/73 08/29/17 08:00 Pulse Ox 96 08/29/17 08:00 Intake & Output 08/28/17 08/29/17 08/29/17 18:59 06:59 18:59 Intake Total 180 300 360 Output Total 300 Balance -120 300 360 Weight 120 kg Intake: Oral 180 300 360 Output: Urine 300 Other: Voiding Method Toilet # Voids 1 - Exam PHYSICAL EXAMINATION: GENERAL: 77-year-old gentleman in no apparent distress at the time of my examination. HEENT: Head is atraumatic, normocephalic. Pupils equal, round. Sclera anicteric. Conjunctiva are clear. Mucous membranes of the mouth are moist. Neck is supple. There is no elevated jugular venous pressure.] bruit is heard. HEART EXAMINATION: Heart S1 and S2 irregularly irregular CHEST EXAMINATION: On's reveal diminished air entry to bilateral bases. Right greater than the left. ABDOMEN: Soft, nontender. Bowel sounds are heard. No organomegaly noted. EXTREMITIES: 2+ peripheral pulses with no evidence of peripheral edema and no calf tenderness noted. NEUROLOGIC patient is awake, alert and oriented -3. . - Labs CBC & Chem 7: 08/29/17 06:39 08/29/17 06:39 Labs: Abnormal Lab Results - Last 24 Hours (Table) 08/29/17 08/29/17 08/29/17 Range/Units 06:39 06:39 07:41 WBC 3.3 L (3.8-10.6) k/uL RBC 3.25 L (4.30-5.90) m/uL Hgb 10.1 L (13.0-17.5) gm/dL Hct 30.6 L (39.0-53.0) % RDW 15.6 H (11.5-15.5) % Plt Count 119 L (150-450) k/uL PT 35.7 H (9.0-12.0) sec INR 4.0 H (<1.2) Glucose 119 H (74-99) mg/dL Calcium 8.3 L (8.4-10.2) mg/dL Assessment and Plan Plan: Assessment and plan #1 chronic persistent atrial fibrillation #2 mesothelioma currently receiving chemotherapy #3 hypertension #4 hyperlipidemia Number 5 sleep apnea Plan From cardiology's perspective, we'll recommend to continue the patient on metoprolol tartrate 25 mg one tablet by mouth twice a day along with verapamil 180 daily. INR today is 4.0, patient's Coumadin will be held today and repeat INR will be performed as an outpatient. Patient may be able to be discharged home from our perspective to follow-up with his clerical assistant, Dr. Linda post discharge. DNP note has been reviewed, I agree with a documented findings and plan of care. Patient was seen and examined.
[2017-08-29 14:33] VITALS: BP 102/59; PULSE 69; TEMP 97
--- NOTE | 2017-08-29 14:38 | P.DS ---
Providers Date of admission: 08/27/17 03:27 Attending physician: Kari Cummings Consults: 08/27/17 03:26 Consult Physician Urgent Consulting Provider: Anabel Birch Consult Reason/Comments: afib Do you want consulting provider notified?: Yes 08/28/17 15:36 Consult Physician Routine Consulting Provider: Lew Palmer Consult Reason/Comments: acute hypoxia, pleural effusion, mesothelioma Do you want consulting provider notified?: Yes Consult Physician Routine Consulting Provider: Carlos Calderon Consult Reason/Comments: Pleural effusion, mesothelioma Do you want consulting provider notified?: Yes Primary care physician: Santiago Luciano [facility] Course: 77-year-old with history of mesothelioma chronic pleural effusion does not using any oxygen at home came in with difficulty breathing found to be in atrial fibrillation patient is presently on 2 L of oxygen and doesn't use any oxygen at home after the chest x-ray which is showing pleural effusions bilaterally significant on the right side. Patient appears to have chronic pleural effusion was evaluated in the past in [facility] to [place] by cardiac thoracic surgery. But patient never used oxygen. Patient atrial fibrillation is well controlled and patient is presently an increase the dose of Verapamil. Patient feels much better with AN nighttime as well. 08/29/2017 Patient is requiring 2 L of oxygen secondary to pleural effusions. And some atelectasis. Pulmonology and cardiac thoracic surgery evaluated the patient is recommending follow-up with the his cardiothoracic surgeon any nose to [place]. Patient will be discharged on 2 L of naproxen. Patient the heart rate is fairly controlled in low 100s and patient is being discharged on verapamil in the metoprolol. Patient has suprapubic INR. Patient is asked to hold his Coumadin today and tomorrow and patient will get INR checked, day after tomorrow and can restart Coumadin depending on his INR. PHYSICAL EXAMINATION: Patient is lying in the bed comfortably, no acute distress, awake alert and oriented.. HEENT: Normocephalic. Neck is supple. Pupils reactive. Nostrils clear. Oral cavity is moist. Ears reveal no drainage. Neck reveals no JVD, carotid bruits, or thyromegaly. CHEST EXAMINATION: Trachea is central. Symmetrical expansion. Left basilar crackles and rhonchi. Expiratory wheezing mainly upper in airway. Lung campos clear to auscultation and percussion. CARDIAC: Normal S1, S2 with no gallops. No murmurs . Irregularly irregular rhythm ABDOMEN: Soft. Bowel sounds normal. No organomegaly. No abdominal bruits. Extremities: reveal no edema. No clubbing or cyanosis Neurologically awake, alert, oriented x3 with well-coordinated movements. No focal deficits noted Skin: No rash or skin lesions. Psychiatric: Cooperative. Nonsuicidal Musculoskeletal: No joint swelling or deformity. Normal range of motion. Assessment and Plan Plan: Acute hypoxic respiratory failure: Secondary to bilateral pleural effusions predominantly in the right side, patient will follow-up with cardiothoracic surgery any was to [place] thoracic surgery and pulmonary evaluate the patient here for hypoxemia and pleural effusions and they recommended follow-up opinion was to [place]. -A. fib with rapid ventricular rate, presently rate controlled on increased dose of verapamil which will be continued -Mesothelioma with extensive pleural calcifications and pleural effusions as mentioned above. Follows up at [facility], last chemotherapy was on Sunday -Hypertension -Hyperlipidemia -Sleep apnea and uses CPAP machine at home -Benign prostatic hypertrophy Patient Condition at Discharge: Fair Plan - Discharge Summary Discharge Rx Participant: No New Discharge Prescriptions: New Metoprolol Tartrate [Lopressor] 25 mg PO BID #60 tab Verapamil Sr [Isoptin Sr] 180 mg PO DAILY #30 tablet.er Warfarin [Coumadin] 4 mg PO DAILY #30 tab Continue Albuterol Inhaler [Ventolin Hfa Inhaler] 1 - 2 puff INHALATION RT-Q6H PRN PRN Reason: Pain traMADol HCL [Ultram] 50 mg PO Q6H PRN PRN Reason: Pain Mirtazapine 7.5 mg PO HS Folic Acid 1 mg PO DAILY ALPRAZolam [Xanax] 0.25 mg PO DAILY PRN PRN Reason: Anxiety Discontinued Warfarin Sodium [Warfarin Sodium] 5 mg PO DAILY@1700 Diltiazem HCl [Cartia Xt] 180 mg PO DAILY Discharge Medication List ALPRAZolam [Xanax] 0.25 mg PO DAILY PRN 08/27/17 [History] Albuterol Inhaler [Ventolin Hfa Inhaler] 1 - 2 puff INHALATION RT-Q6H PRN [History] Folic Acid 1 mg PO DAILY 08/27/17 [History] Mirtazapine 7.5 mg PO HS 08/27/17 [History] traMADol HCL [Ultram] 50 mg PO Q6H PRN 08/27/17 [History] Metoprolol Tartrate [Lopressor] 25 mg PO BID #60 tab 08/29/17 [Rx] Verapamil Sr [Isoptin Sr] 180 mg PO DAILY #30 tablet.er 08/29/17 [Rx] Warfarin [Coumadin] 4 mg PO DAILY #30 tab 08/29/17 [Rx] Follow up Appointment(s)/Referral(s): Manfred Bazan MD [STAFF PHYSICIAN] - 4 Weeks (Office to call you with follow up appointment.) Santiago Green DO [Primary Care Provider] - 1-2 days (Office to call with appointment time.) [facility] Visiting Nurse, [NON-STAFF] - Ambulatory/Diagnostic Orders: Prothrombin Time INR [LAB.AMB] Time Frame: 3 Days, Location: Determined By Patient Patient Instructions/Handouts: A-fib (Atrial Fibrillation) (DC) Activity/Diet/Wound Care/Special Instructions: Patient need to follow up with his cardiothoracic surgeon some time this week. Discharge Disposition: HOME SELF-CARE
[2017-08-29] MEDS: FOLIC ACID 1 MG TAB PO SCH (14:56)
== END 2017-08-29 16:25 | disposition home health service (06) | DRG 308 ==
LOC: EC 02:11 → UNDOADMOB 03:27 → 3OBS 03:27 → 6SEL 03:27
PROVIDERS: ADMIT Hospitalist; ATTEND Hospitalist
DX: I48.2 Chronic atrial fibrillation (principal); J96.01 Acute respiratory failure with hypoxia; J90 Pleural effusion, not elsewhere classified; J98.11 Atelectasis; E66.01 Morbid (severe) obesity due to excess calories; E78.5 Hyperlipidemia, unspecified; F41.1 Generalized anxiety disorder; G47.33 Obstructive sleep apnea (adult) (pediatric); I10 Essential (primary) hypertension; K57.30 Diverticulosis of large intestine without perforation or abscess without bleeding; N40.0 Benign prostatic hyperplasia without lower urinary tract symptoms; Z79.01 Long term (current) use of anticoagulants; Z80.3 Family history of malignant neoplasm of breast; Z98.42 Cataract extraction status, left eye; Z79.899 Other long term (current) drug therapy; C45.7 Mesothelioma of other sites
CPT/HCPCS: 71046; 80048; 80061; 82550; 82553; 83605; 84484; 85027; 85610; 93005; 94640; 94760; 96365; 99285

== ENCOUNTER 2017-09-20 16:16 | Inpatient (IN) | payer MEDICARE ==
[2017-09-20] MEDS ORDERED: IPRATROPIUM-ALBUTEROL 3 ML NEB INHALATION STA (17:09)
[2017-09-20] MEDS ORDERED: FUROSEMIDE 10 MG/ML 4 ML VIAL IV STA (17:11)
[2017-09-20] MEDS ORDERED: DILTIAZEM DRIP BOLUS FROM BAG 1 MG SOLN IV ONE (17:11)
--- NOTE | 2017-09-20 17:15 | ED ---
Chest Pain HPI - General Chief Complaint: Chest Pain Stated Complaint: Chest Pain Time Seen by Provider: 09/20/17 16:52 Source: patient, family, RN notes reviewed Mode of arrival: wheelchair Limitations: no limitations - History of Present Illness Initial Comments: This is a 77-year-old male with a history of recently diagnosed mesothelioma the right upper lobe of the lung who is status post chemotherapy 2 days ago who does use updrafts at home and who does also have a intermittent history of atrial fibrillation who presents with complaints of retrosternal chest tightness 3-4/10 severity shortness of breath exertional dyspnea. He had sweats last evening he soaked through 2 shirts. No overt fevers or chills however no further episodes of this. He states he cannot tell when he flipped into atrial fibrillation he is not sure how long he's been in it though he was found have an irregular heart rate and is tachycardic. He has no known history of heart disease other than atrial fibrillation he was never diagnosed with COPD or asthma or emphysema whether he does use updrafts at home. He is a nonsmoker. No nausea vomiting abdominal pain or other symptoms at this time. No focal weakness. MD Complaint: chest pain, other - Related Data Home Medications Medication Instructions Recorded Confirmed ALPRAZolam [Xanax] 0.25 mg PO DAILY PRN 08/27/17 09/20/17 Albuterol Inhaler [Ventolin Hfa 1 - 2 puff INHALATION RT-Q6H PRN 08/27/17 Inhaler] Folic Acid 1 mg PO DAILY 08/27/17 09/20/17 Mirtazapine 7.5 mg PO HS 08/27/17 09/20/17 traMADol HCL [Ultram] 50 mg PO Q6H PRN 08/27/17 09/20/17 Metoprolol Tartrate [Lopressor] 12.5 mg PO BID 09/20/17 09/20/17 Warfarin [Coumadin] 4 mg PO HS 09/20/17 09/20/17 Previous Rx's Medication Instructions Recorded Verapamil Sr [Isoptin Sr] 180 mg PO DAILY #30 tablet.er 08/29/17 Allergies Allergy/AdvReac Type Severity Reaction Status Date / Time No Known Allergies Allergy Verified 09/20/17 17:01 Review of Systems ROS Statement: Those systems with pertinent positive or pertinent negative responses have been documented in the HPI. ROS Other: All systems not noted in ROS Statement are negative. EKG Findings - EKG Results: EKG: interpreted by BHAVNA (Atrial fibrillation with a rate of 110 QRS 104 QT since QTC 336/454 low-voltage incomplete right bundle-branch block nonspecific inferior changes.) Past Medical History Past Medical History: Atrial Fibrillation, Hyperlipidemia, Hypertension, Prostate Disorder, Sleep Apnea/CPAP/BIPAP Additional Past Medical History / Comment(s): hx pleural thickening, cpap, mesothelioma History of Any Multi-Drug Resistant Organisms: None Reported Past Surgical History: Orthopedic Surgery, Tonsillectomy Additional Past Surgical History / Comment(s): rt knee scope, lt eye cataract Past Anesthesia/Blood Transfusion Reactions: Motion Sickness Past Psychological History: No Psychological Hx Reported Smoking Status: Never smoker Past Alcohol Use History: None Reported Past Drug Use History: None Reported - Past Family History Mother Family Medical History: Cancer Additional Family Medical History / Comment(s): cancer Father Family Medical History: Pneumonia Additional Family Medical History / Comment(s): Mesothelioma General Exam - General Exam Comments Initial Comments: This is a well-developed well-nourished awake alert oriented times 3 male Limitations: no limitations General appearance: alert, in no apparent distress Head exam: Present: atraumatic, normocephalic, normal inspection Eye exam: Present: normal appearance, PERRL, EOMI. Absent: scleral icterus, conjunctival injection, periorbital swelling ENT exam: Present: mucous membranes dry Neck exam: Present: normal inspection. Absent: tenderness, meningismus, lymphadenopathy Respiratory exam: Present: rales, chest wall tenderness, decreased breath sounds Cardiovascular Exam: Present: tachycardia, irregular rhythm GI/Abdominal exam: Present: soft, normal bowel sounds. Absent: distended, tenderness, guarding, rebound, rigid Course Vital Signs 09/20/17 09/20/17 09/20/17 16:25 17:33 17:44 Temperature 100.9 F H Pulse Rate 108 H 132 H 126 H Respiratory 26 H Rate Blood Pressure 126/73 O2 Sat by Pulse 98 Oximetry 09/20/17 09/20/17 18:01 19:46 Temperature Pulse Rate 127 H 130 H Respiratory 22 22 Rate Blood Pressure 129/77 141/82 O2 Sat by Pulse 94 L 98 Oximetry - Reevaluation(s) Reevaluation #1: 09/20/17 19:53 Patient was having some chest discomfort and they get pain medication which should help. Reevaluation #2: CAT scan showed no pulmonary embolism there is evidence of an increasing right pleural effusion. Chest Pain MDM - MDM I did review the imaging and reports no PE there is increasing evidence of pulmonary vascular congestion/CHF and right pleural effusion. I did discuss the findings with the patient and his son patient does have rapid atrial fibrillation with a right pleural effusion and congestive heart failure. This did have a fever some clear whether this is a pulmonary origin he will be started on antibiotics. Patient will be admitted with pulmonary consultation as well as cardiology. Patient does see Dr. Bazan Critical Care Time Critical Care Time: Yes Critical Care Time: 39 minutes of critical care time which includes initial presentation with history physical labs x-rays several reevaluation patient. Discussed with patient and family regarding findings review of old charting. Discussion with the admitting physician admission orders and documentation of the above. Disposition Clinical Impression: Congestive heart failure (CHF), Febrile illness, acute, Hypomagnesemia syndrome , Mesothelioma, Atrial fibrillation with RVR, Atypical chest pain Disposition: ADMITTED IP TO THIS HOSP Condition: Stable Referrals: Santiago Green DO [Primary Care Provider] - 1-2 days
[2017-09-20] MEDS: DILTIAZEM 50 MG in SODIUM CHLORIDE 0.9% 40 ML IV SCH (17:59)
[2017-09-20 18:02] LABS: Anisocytosis Slight; Basophils % (A) 0 %; Eosinophils # (A) 0.1 k/uL (0-0.7); Eosinophils % (A) 1 %; HCT 33.7 % (39.0-53.0); HGB 10.9 gm/dL (13.0-17.5); Lymphocytes # (A) 0.5 k/uL (1.0-4.8); Lymphocytes % (A) 4 %; MCH 31.1 pg (25.0-35.0); MCHC 32.4 g/dL (31.0-37.0); Macrocytosis Slight; Mean Platelet Volume 6.4; Monocytes # (A) 0.2 k/uL (0-1.0); Monocytes % (A) 2 %; Neutrophils # (A) 10.5 k/uL (1.3-7.7); Neutrophils % (A) 91 %; RBC 3.51 m/uL (4.30-5.90); RDW 16.9 % (11.5-15.5); WBC 11.5 k/uL (3.8-10.6)
[2017-09-20 18:03] LABS: Platelet Count 314 k/uL (150-450)
[2017-09-20 18:12] LABS: ALT 29 U/L (21-72); AST 33 U/L (17-59); Albumin 3.2 g/dL (3.5-5.0); Alkaline Phosphatase 59 U/L (38-126); Anion Gap 10 mmol/L; Blood Urea Nitrogen 14 mg/dL (9-20); Calcium 8.7 mg/dL (8.4-10.2); Carbon Dioxide 29 mmol/L (22-30); Chloride 101 mmol/L (98-107); Glucose 124 mg/dL (74-99); Magnesium 1.5 mg/dL (1.6-2.3); Potassium 4.2 mmol/L (3.5-5.1); Sodium 140 mmol/L (137-145); Total Bilirubin 0.9 mg/dL (0.2-1.3); Total Protein 6.6 g/dL (6.3-8.2)
[2017-09-20 18:15] LABS: INR 1.6 (<1.2); Partial Thromboplastin Time 27.9 sec (22.0-30.0); Prothrombin Time 15.1 sec (9.0-12.0)
[2017-09-20 18:19] LABS: D-Dimer 3.44 mg/L FEU (<0.60)
[2017-09-20] MEDS ORDERED: MAGNESIUM SULFATE-D5W PMX 1 GM in DEXTROSE/WATER 1 100ML.BAG IVPB ONE (18:20)
[2017-09-20 18:27] LABS: Creatine Kinase <20 U/L (55-170)
--- NOTE | 2017-09-20 18:32 | XR ---
EXAMINATION TYPE: XR chest 2V DATE OF EXAM: 09/20/2017 COMPARISON: 08/28/2017 HISTORY: Chest pain TECHNIQUE: Frontal and lateral views of the chest are obtained. FINDINGS: There is some pulmonary vascular congestion. There is calcified pleural plaque. There is m oderate pleural effusion with loculation and pleural thickening at the right lung apex. There are angel st leads. Heart is enlarged. IMPRESSION: Large chronic right pleural effusion with loculation and pleural thickening. Calcified p leural plaque. There is probably some congestive heart failure. No significant change compared to las t exam. The possibility of mesothelioma should be considered.
[2017-09-20 18:41] LABS: Creatine Kinase MB <0.2 ng/mL (0.0-2.4); Troponin I <0.012 ng/mL (0.000-0.034)
[2017-09-20] MEDS ORDERED: fentaNYL (PF) 50 MCG/ML 2 ML AMP IV STA (19:11)
--- NOTE | 2017-09-20 19:30 | CT ---
EXAMINATION TYPE: CT angio chest DATE OF EXAM: 09/20/2017 7:06 PM COMPARISON: NONE HISTORY: Chest pain and SOB CT DLP: 483.1 mGycm Automated exposure control for dose reduction was used. CONTRAST: CTA scan of the thorax is performed with IV Contrast, patient injected with 70 mL of Isovue 370, pulm onary embolism protocol. There are 3-D post processed images.. FINDINGS: There is loculated pleural fluid and thickening on the right side. I see no definite filling defects in the pulmonary arteries. There is consolidation and atelectasis in the right lower lobe. Heart is e nlarged. There is small pericardial effusion. There is small left pleural effusion. There is bilatera l extensive calcified pleural plaque. There is enlarged pretracheal lymph node that measures 2 x 1.5 cm. Thoracic aorta is intact without evidence of aneurysm or dissection. There is spurring in the tho racic spine. I see no bony destructive process. IMPRESSION: BILATERAL PLEURAL EFFUSIONS AND MUCH LARGER ON THE RIGHT SIDE. THERE IS LOCULATION ON THE RIGHT SIDE. EXTENSIVE CALCIFIED PLEURAL PLAQUE. MESOTHELIOMA SHOULD BE CONSIDERED. CONSOLIDATION IN THE RIGHT LO WER LOBE WITH ATELECTASIS. NO EVIDENCE OF PULMONARY EMBOLISM.
[2017-09-20] MEDS ORDERED: CEFEPIME 2 GM in SODIUM CHLORIDE 0.9% 50 ML IVPB STA (19:58)
[2017-09-20] MEDS ORDERED: ALPRAZolam 0.25 MG TAB PO PRN (20:05)
[2017-09-20] MEDS ORDERED: WARFARIN 5 MG TAB PO ONE (20:15)
[2017-09-20] MEDS ORDERED: IPRATROPIUM-ALBUTEROL 3 ML NEB INHALATION PRN (20:24)
[2017-09-20] MEDS ORDERED: ACETAMINOPHEN TAB 500 MG TAB PO STA (20:33)
[2017-09-20] MEDS ORDERED: fentaNYL (PF) 50 MCG/ML 5 ML AMP IVP STA (21:31)
[2017-09-20] MEDS ORDERED: ACETAMINOPHEN TAB 325 MG TAB PO PRN (21:37)
[2017-09-20] MEDS: SODIUM CHLORIDE 0.9% 1,000 ML IV SCH (21:58)
[2017-09-20] MEDS: METOPROLOL TARTRATE 12.5 MG TAB PO SCH (22:22)
[2017-09-20] MEDS: MIRTAZAPINE 15 MG TAB PO SCH (22:22)
[2017-09-20] MEDS: WARFARIN 2 MG TAB PO SCH (22:23)
[2017-09-20] MEDS ORDERED: CALCIUM CARBONATE 500 MG CHEWABLE PO PRN (22:37)
[2017-09-20] MEDS ORDERED: LACTULOSE 20 GM/30 ML CUP PO PRN (22:37)
[2017-09-20] MEDS ORDERED: MELATONIN 3 MG TABLET PO PRN (22:37)
[2017-09-20] MEDS ORDERED: ONDANSETRON 4 MG/2 ML VIAL IVP PRN (22:37)
[2017-09-20] MEDS ORDERED: MAGNESIUM HYDROXIDE 2,400 MG/10 ML CUP PO PRN (22:37)
[2017-09-20] MEDS: NITROGLYCERIN OINT 1 INCH/GM PACKET TOPICAL SCH (23:24)
[2017-09-20] MEDS: FUROSEMIDE 10 MG/ML 4 ML VIAL IV SCH (23:24)
[2017-09-21] MEDS ORDERED: IPRATROPIUM-ALBUTEROL 3 ML NEB INHALATION SCH
[2017-09-21] MEDS: DILTIAZEM 50 MG in SODIUM CHLORIDE 0.9% 40 ML IV SCH ×2 (04:34→12:05)
[2017-09-21] MEDS: CEFEPIME 2 GM in SODIUM CHLORIDE 0.9% 50 ML IVPB SCH ×3 (04:37→20:10)
[2017-09-21] MEDS: NITROGLYCERIN OINT 1 INCH/GM PACKET TOPICAL SCH (06:23)
[2017-09-21] MEDS: FUROSEMIDE 10 MG/ML 4 ML VIAL IV SCH ×2 (08:06→15:40)
[2017-09-21] MEDS: METOPROLOL TARTRATE 12.5 MG TAB PO SCH ×2 (08:06→20:15)
[2017-09-21] MEDS: FOLIC ACID 1 MG TAB PO SCH (08:06)
[2017-09-21] MEDS: IPRATROPIUM-ALBUTEROL 3 ML NEB INHALATION SCH ×4 (08:13→19:48)
[2017-09-21] MEDS ORDERED: VERAPAMIL SR 180 MG TABLET.ER PO SCH (09:00)
--- NOTE | 2017-09-21 12:24 | P.CNPUL ---
History of Present Illness Consult date: 09/21/17 Reason for consult: dyspnea, chest pain, hypoxemia, lung mass, abnormal CXR/CT Chief complaint: Shortness of breath History of present illness: Pulmonary consult dated 09/21/2017 77-year-old male with a diagnosis of mesothelioma involving the right chest, who is taking chemotherapy [facility]. He apparently had chemotherapy earlier this week. The patient presents with complaints of shortness of breath and chest discomfort. He was found to have atrial fibrillation. The patient's feeling a bit better now. He sees my partner for his sleep apnea syndrome. He apparently had sweats and may be fever after his most recent chemotherapy a couple days ago. He really denies much in the way of cough or phlegm production. He denies any nausea vomiting diarrhea or abdominal pain. No urinary complaints. Not having any chest pain at this time. The patient took radiation therapy here at our facility with Dr. Stephan Velasco. This patient has a history of atrial fibrillation hyperlipidemia hypertension sleep apnea syndrome currently on CPAP as well as benign prostatic hypertrophy. He is feeling better currently than he did when he first came in. Review of Systems A 12 point review of system is positive for shortness of breath and chest pain. He also had palpitations with a rapid heartbeat and fluttering in the chest. Past Medical History Past Medical History: Atrial Fibrillation, Hyperlipidemia, Hypertension, Prostate Disorder, Sleep Apnea/CPAP/BIPAP Additional Past Medical History / Comment(s): hx pleural thickening, cpap, mesothelioma History of Any Multi-Drug Resistant Organisms: None Reported Past Surgical History: Orthopedic Surgery, Tonsillectomy Additional Past Surgical History / Comment(s): rt knee scope, lt eye cataract Past Anesthesia/Blood Transfusion Reactions: Motion Sickness Past Psychological History: No Psychological Hx Reported Smoking Status: Never smoker Past Alcohol Use History: None Reported Past Drug Use History: None Reported - Past Family History Mother Family Medical History: Cancer Additional Family Medical History / Comment(s): cancer Father Family Medical History: Pneumonia Additional Family Medical History / Comment(s): Mesothelioma Medications and Allergies Home Medications Medication Instructions Recorded Confirmed Type ALPRAZolam [Xanax] 0.25 mg PO DAILY PRN 08/27/17 09/20/17 History Albuterol Inhaler [Ventolin Hfa 1 - 2 puff INHALATION RT-Q6H PRN 08/27/17 History Inhaler] Folic Acid 1 mg PO DAILY 08/27/17 09/20/17 History Mirtazapine 7.5 mg PO HS 08/27/17 09/20/17 History traMADol HCL [Ultram] 50 mg PO Q6H PRN 08/27/17 09/20/17 History Verapamil Sr [Isoptin Sr] 180 mg PO DAILY #30 tablet.er 08/29/17 09/20/17 Rx Metoprolol Tartrate [Lopressor] 12.5 mg PO BID 09/20/17 09/20/17 History Warfarin [Coumadin] 4 mg PO HS 09/20/17 09/20/17 History Allergies Allergy/AdvReac Type Severity Reaction Status Date / Time No Known Allergies Allergy Verified 09/20/17 17:01 Physical Exam Osteopathic Statement: *. No significant issues noted on an osteopathic structural exam other than those noted in the History and Physical/Consult. Vitals: Vital Signs Temp Pulse Pulse Resp BP BP Pulse Ox 09/21/17 11:45 100 09/21/17 11:31 98 09/21/17 08:26 99 09/21/17 08:15 110 H 09/21/17 04:00 105 H 20 105/69 92 L 09/21/17 00:00 106 H 20 09/20/17 23:18 106 H 20 99/64 97 09/20/17 22:00 97.8 F 112 H 105 H 18 113/88 123/70 98 09/20/17 20:15 107 H 95 09/20/17 19:57 100.1 F H 125 H 20 123/80 95 09/20/17 19:46 130 H 22 141/82 98 09/20/17 18:01 127 H 22 129/77 94 L 09/20/17 17:44 126 H 09/20/17 17:33 132 H 09/20/17 16:25 100.9 F H 108 H 26 H 126/73 98 Intake and Output 09/20/17 09/21/17 09/21/17 22:59 06:59 14:59 Intake Total 28.667 41.333 168 Balance 28.667 41.333 168 Intake: Intake, IV Titration 28.667 41.333 50 Amount Diltiazem 50 mg In Sodium 8.667 41.333 50 Chloride 0.9% 40 ml @ 5 MG/HR 5 mls/hr IV .Q10H [facility] Rx#:[id number] Sodium Chloride 0.9% 1, 20 000 ml @ 20 mls/hr IV . Q24H [facility] Rx#:[id number] Oral 118 Other: # Voids 2 Weight 122.47 kg 119.6 kg No acute distress, oriented 3. Laying flat in bed with CPAP device in place. HEENT examination is grossly unremarkable. Mucous membranes are moist. No oral lesions. Neck supple. Full range of motion. No adenopathy thyromegaly or neck vein distention. Cardiovascular examination reveals irregular and rhythm rate. S1-S2 normal. No murmur noted. Lungs reveal scattered bilateral rhonchi right greater than left. Breath sounds diminished on the right side. No crackles. Abdomen soft bowel sounds are heard. No masses or tenderness. Extremities are intact. No cyanosis clubbing or edema. Skin is without rash or lesion. Neurologic examination is brief but nonfocal. Results - Laboratory Findings CBC and BMP: 09/20/17 17:49 09/20/17 17:49 PT/INR, D-dimer PT 15.1 sec (9.0-12.0) H 09/20/17 17:49 INR 1.6 (<1.2) H 09/20/17 17:49 D-Dimer 3.44 mg/L FEU (<0.60) H 09/20/17 17:49 Abnormal lab findings: Abnormal Labs 09/20/17 09/20/17 09/20/17 17:49 17:49 17:49 WBC 11.5 H RBC 3.51 L Hgb 10.9 L Hct 33.7 L RDW 16.9 H Neutrophils # 10.5 H Lymphocytes # 0.5 L PT INR D-Dimer Creatinine 0.60 L Glucose 124 H Magnesium 1.5 L Total Creatine Kinase <20 L Albumin 3.2 L 09/20/17 17:49 WBC RBC Hgb Hct RDW Neutrophils # Lymphocytes # PT 15.1 H INR 1.6 H D-Dimer 3.44 H Creatinine Glucose Magnesium Total Creatine Kinase Albumin - Diagnostic Findings Chest x-ray: report reviewed, image reviewed CT scan - chest: report reviewed, image reviewed (Chest x-rays labs medications and CAT scans are reviewed.) Assessment and Plan Assessment: Assessment Atrial fibrillation with RVR Congestive heart failure. Rule out pneumonia, RLL History of mesothelioma, status post radiation therapy, currently receiving chemotherapy History of hyperlipidemia History of hypertension History of sleep apnea syndrome History of benign prostatic hypertrophy Plan: Plan dated 09/21/2017 The patient's labs and medications are reviewed. He seems relatively stable at this time. He's had multiple admissions to the hospital. He is a no code patient which I think is appropriate given his baseline diagnosis of mesothelioma. The patient's medications are reviewed. Additional recommendations and suggestions are forthcoming. We'll continue to follow. Time with Patient: Greater than 30
--- NOTE | 2017-09-21 12:42 | CONS ---
CONSULTATION CHIEF COMPLAINT: Shortness of breath and palpitations. Mr. Daley is a 77-year-old gentleman with history of chronic atrial fibrillation, hypertension, mesothelioma of the right upper lung on chemotherapy, who presented to hospital complaining of shortness of breath, sustained palpitations and vague chest discomfort. He was found to be in atrial fibrillation with rapid ventricular rate and once the heart rate was controlled, his symptoms have improved. He has mild leg edema. On his initial presentation, INR was subtherapeutic. D-dimer was elevated. He had a CT scan of the chest that was negative for pulmonary embolism. He does have bilateral pleural effusions, right more than the left. Aorta was normal. Patient has a new onset congestive heart failure, probably diastolic. I will obtain a 2-D echo to evaluate LV function. Heart rate is well controlled on intravenous Cardizem. I will continue the Coumadin to maintain an INR of 2 to 2.5. I talked to patient about starting novel anticoagulants and he does not want to change from Coumadin. PAST MEDICAL HISTORY: Significant for chronic atrial fibrillation, hypertension and mesothelioma. MEDICATIONS: Medications include Ultram, Coumadin, Isoptin, Lopressor 12.5 b.i.d., folic acid, Ventolin and Xanax. ALLERGIES: There are no known drug allergies. FAMILY HISTORY: Negative for premature coronary artery disease. SOCIAL HISTORY: Negative for current smoking, EtOH abuse, or drug abuse. REVIEW OF SYSTEMS: HEENT is unremarkable. CARDIAC: As described above. RESPIRATORY: As described above. GI: Negative. GENITOURINARY: Negative. ALLERGY/IMMUNOLOGY: Negative. SKIN: Negative. MUSCULOSKELETAL: Negative. ENDOCRINE: Negative. HEMATOLOGICAL: Negative. DERM: Negative. CONSTITUTIONAL: Negative. ONCOLOGICAL: Negative. Rest of the system review is not relevant. PHYSICAL EXAMINATION: On exam, patient is comfortable at rest. Heart rate is 99 beats per minute. Blood pressure is 105/69. Respiratory rate is 18. Chest exam reveals diminished air entry at the bases. I do not hear any crackles or rhonchi. Heart exam reveals first and second heart sounds, irregular rhythm. Abdomen is soft. Examination of extremities reveals bilateral 1+ pitting edema. LABS: Labs show a hemoglobin of 10.9. INR is 1.6. D-dimer is 3.4. Potassium is 4.2. Creatinine is 0.6. BNP is elevated at 2200. Three sets of troponins are negative. EKG shows atrial fibrillation with nonspecific ST-T wave changes. ASSESSMENT: 1. Acute onset congestive heart failure of undetermined etiology. 2. Chronic atrial fibrillation with poorly controlled ventricular rate. 3. Mesothelioma. PLAN: I will continue the intravenous Cardizem. If heart rate is better controlled this afternoon, we may switch him to oral Cardizem or increase the dose of beta blockers. I will try a small dose of KAIDEN inhibitor. I will treat the patient with intravenous diuretics, stop the nitro paste and obtain a 2-D echo. MMODL / IJN: [id number] /
[2017-09-21 14:46] VITALS: BMI 35.7
--- NOTE | 2017-09-21 17:14 | HP ---
HISTORY AND PHYSICAL DATE OF ADMISSION: 09/20/2017 DATE OF SERVICE: 09/21/2017 PRESENTING COMPLAINT: Short of breath, tired, chest pressure. HISTORY OF PRESENTING COMPLAINT: This is a pleasant 77-year-old patient of Dr. Green. Patient has been diagnosed with mesothelioma. He also has a chronic pleural effusion. Patient is getting radiation treatment for the same and did get his first round of chemotherapy. Patient also has known atrial fibrillation, for which he had been on Coumadin. Other chronic stable medical conditions include hypertension, hyperlipidemia, BPH, obstructive sleep apnea, and does use a CPAP machine. The patient presented with chest pressure, shortness of breath, minimal edema. Since March of this year the patient has lost about 40 pounds. Decreased appetite, felt tired, rundown. Yesterday he was found to be in atrial fibrillation with rapid ventricular rate and was started on IV Cardizem. He was also felt to be in congestive heart failure exacerbation. He was given a dose of IV Lasix. Patient does feel tired and rundown. Consultations to Cardiology and Pulmonary were done. Denies any fever or chills. REVIEW OF SYSTEMS: CONSTITUTIONAL: Tired. Loss of appetite. Weight loss. HEENT: None. RESPIRATORY: As above. CARDIOVASCULAR: As above. GASTROINTESTINAL: None. GENITOURINARY: None. MUSCULOSKELETAL: None. DERMATOLOGICAL: None. HEMATOLOGICAL: None. LYMPHATICS: None. PSYCHIATRY: None. NEUROLOGICAL: None. PAST MEDICAL HISTORY: 1. Mesothelioma. 2. Chronic pleural effusion. 3. Atrial fibrillation. 4. Hypertension. 5. Hyperlipidemia. 6. Obstructive sleep apnea. 7. BPH. PAST SURGICAL HISTORY: 1. Orthopedic surgery. 2. Tonsillectomy. 3. Left eye cataract. 4. Right knee scope. SOCIAL HISTORY: No smoking. No alcohol. Lives with family. FAMILY HISTORY: Cancer. HOME MEDICATIONS: 1. Ultram 50 mg q.6 p.r.n. 2. Coumadin 4 mg at bedtime. 3. Verapamil SR 180 mg daily. 4. Mirtazapine 7.5 mg p.o. at bedtime. 5. Lopressor 12.5 p.o. b.i.d. 6. Folic acid 1 mg p.o. daily. 7. Ventolin HFA 1 or 2 puffs q.6 p.r.n. 8. Xanax 0.25 p.o. daily p.r.n. ALLERGIES: NONE. PHYSICAL EXAMINATION: VITAL SIGNS ON PRESENTATION: Temperature 100.9, pulse 108, respiration 26, blood pressure 126/73, pulse ox 98% on room air. GENERAL APPEARANCE: Well built; BMI 35.8. Lying in bed, tired-appearing. EYES: Pupils equal. Conjunctivae normal. HEENT: External appearance of nose and ears normal. Oral cavity normal. NECK: JVD unable to assess. Mass not palpable. RESPIRATORY: Effort increased. LUNGS: Diminished breath sounds. CARDIOVASCULAR: Heart sounds irregular. No edema. ABDOMEN: Soft, nontender. Liver and spleen not palpable. LYMPHATIC: No lymph node palpable in neck or axillae. PSYCHIATRY: Alert and oriented x3. Mood and affect normal. NEUROLOGICAL: Pupils equal. Cranial nerves grossly intact. Power and sensation grossly intact. INVESTIGATIONS: White count 11.5, hemoglobin 10.9, potassium 4.2, BUN 14, creatinine 0.6. Troponin x3 negative. ProBNP 2200. Chest x-ray shows large chronic right pleural effusion with loculation and pleural thickening, calcified pleural plaques and some venous prominence. Chest CTA shows bilateral pleural effusion, much larger on the right, including loculation and calcified pleural plaques on the right side. Also had large peritracheal lymph nodes. EKG: Atrial fibrillation, rapid ventricular rate. ASSESSMENT: 1. Persistent atrial fibrillation with a rapid ventricular rate. Patient was started on IV Cardizem in the ER. 2. Mesothelioma with associated pleural effusion, chronic. 3. Acute congestive heart failure exacerbation; ejection fraction pending. 4. Coumadin monitoring. 5. Essential hypertension. 6. Hyperlipidemia. 7. Obstructive sleep apnea. Uses CPAP machine. 8. Benign prostatic hypertrophy. 9. Obesity; body mass index 35.8. 10.Possible pneumonia, given patient had some fever when he came in. PLAN: The patient was put on bronchodilators, IV cefepime and IV Cardizem drip. Coumadin has been resumed. Consultations to Pulmonary and Cardiology were made. Two-D echo was ordered by Cardiology. Overall prognosis is guarded. Care was discussed with the patient. MMODL / IJN: [id number] /
[2017-09-21] MEDS: traMADol 50 MG TAB PO PRN (18:18)
[2017-09-21] MEDS: SODIUM CHLORIDE 0.9% 1,000 ML IV SCH (20:10)
[2017-09-21] MEDS: MIRTAZAPINE 15 MG TAB PO SCH (20:15)
[2017-09-21] MEDS: WARFARIN 2 MG TAB PO SCH (20:15)
[2017-09-22] MEDS: FUROSEMIDE 10 MG/ML 4 ML VIAL IV SCH ×3 (01:06→15:32)
[2017-09-22] MEDS: DILTIAZEM 50 MG in SODIUM CHLORIDE 0.9% 40 ML IV SCH ×2 (01:06→11:54)
[2017-09-22] MEDS: traMADol 50 MG TAB PO PRN ×2 (03:18→15:33)
[2017-09-22] MEDS: CEFEPIME 2 GM in SODIUM CHLORIDE 0.9% 50 ML IVPB SCH ×2 (05:52→11:57)
[2017-09-22] MEDS: IPRATROPIUM-ALBUTEROL 3 ML NEB INHALATION SCH ×2 (07:38→10:54)
[2017-09-22] MEDS: FOLIC ACID 1 MG TAB PO SCH (08:47)
[2017-09-22] MEDS: METOPROLOL TARTRATE 12.5 MG TAB PO SCH (08:48)
[2017-09-22] MEDS ORDERED: VERAPAMIL SR 240 MG TABLET.ER PO SCH (09:00)
[2017-09-22 10:10] VITALS: RESP 18
--- NOTE | 2017-09-22 10:18 | P.PN ---
Subjective Progress Note Date: 09/22/17 Principal diagnosis: Shortness of breath, atrial fibrillation, mesothelioma Progress note dated 09/22/2017 77-year-old male who is currently doing well. He was admitted with a diagnosis of atrial fibrillation with RVR, acute congestive heart failure, and possible right lower lobe pneumonia. He does have history of mesothelioma status post radiation therapy and currently undergoing chemotherapy [facility]. In addition, he has a history of hyperlipidemia hypertension sleep apnea syndrome and BPH. The patient is doing well. He seemed be tolerating treatment here well and he feels like he is well enough to be discharged home. He will be getting the rest of his chemotherapy [facility]. He's finished radiation therapy here at our institution. His breathing is much improved. He's able to lay flat. He is using his CPAP device. Objective - Vital Signs Vital signs: Vital Signs Temp 97.8 F 09/22/17 08:00 Pulse 105 H 09/22/17 08:00 Resp 18 09/22/17 08:00 BP 104/64 09/22/17 08:00 Pulse Ox 94 L 09/22/17 08:00 Intake & Output 09/21/17 09/22/17 09/22/17 18:59 06:59 18:59 Intake Total 218 300 118 Balance 218 300 118 Weight 119.6 kg 118.2 kg Intake: Intake, IV Titration 100 Amount Diltiazem 50 mg In Sodium 100 Chloride 0.9% 40 ml @ 5 MG/HR 5 mls/hr IV .Q10H [facility] Rx#:[id number] Oral 118 300 118 Other: # Voids 2 2 - Exam No acute distress, oriented 3. CPAP device in place. HEENT examination is grossly unremarkable. Mucous membranes are moist. No oral lesions. Neck supple. Full range of motion. No adenopathy thyromegaly or neck vein distention. Cardiovascular examination reveals regular rhythm rate. S1-S2 normal. No S3 or S4. No discernible murmur noted. Lungs reveal bibasilar crackles. A few scattered rhonchi are noted. Breath sounds are diminished in the right side. No wheezes. Breath sounds equal bilaterally. Abdomen soft bowel sounds are heard. No masses or tenderness. Extremities are intact. No cyanosis clubbing or edema. Skin is without rash or lesion. Neurologic examination is brief but nonfocal. - Labs CBC & Chem 7: 09/20/17 17:49 09/20/17 17:49 Labs: Microbiology - Last 24 Hours (Table) 09/20/17 17:49 Blood Culture - Preliminary Blood No Growth after 24 hours Assessment and Plan Assessment: Assessment Atrial fibrillation with RVR Congestive heart failure. Rule out pneumonia, RLL History of mesothelioma, status post radiation therapy, currently receiving chemotherapy History of hyperlipidemia History of hypertension History of sleep apnea syndrome History of benign prostatic hypertrophy Plan: Plan dated 09/21/2017 The patient's labs and medications are reviewed. He seems relatively stable at this time. He's had multiple admissions to the hospital. He is a no code patient which I think is appropriate given his baseline diagnosis of mesothelioma. The patient's medications are reviewed. Additional recommendations and suggestions are forthcoming. We'll continue to follow. Plan dated 09/22/2017 The patient's microbiology thus far is negative. There is no new laboratory data. Chest x-ray from the fifth and CAT scan from the fifth are reviewed. The patient's doing well. Could be discharged home. Medications are reviewed. Time with Patient: Less than 30
--- NOTE | 2017-09-22 12:32 | P.PN ---
Subjective Progress Note Date: 09/22/17 This is a 77-year-old gentleman that's the hospital with atrial fibrillation with rapid ventricular response as well as congestive heart failure and possible right lower lobe pneumonia. Patient has a history of mesothelioma status post radiation therapy and is currently undergoing chemotherapy at [facility]. In addition to that he has a history of hyper-tension, sleep apnea, hyperlipidemia, and BPH. Patient was seen and examined this morning, echocardiogram with Doppler study remains pending. Blood pressure 104/60 with a heart rate in the 70s. No lab data available today. His weight is down 1 kg today. No lab data today, we will check a PT/ INR as well as lytes BUN and creatinine. Objective - Vital Signs Vital signs: Vital Signs Temp 97.8 F 09/22/17 08:00 Pulse 105 H 09/22/17 08:00 Resp 18 09/22/17 08:00 BP 104/64 09/22/17 08:00 Pulse Ox 94 L 09/22/17 08:00 Intake & Output 09/21/17 09/22/17 09/22/17 18:59 06:59 18:59 Intake Total 218 300 118 Balance 218 300 118 Weight 119.6 kg 118.2 kg Intake: Intake, IV Titration 100 Amount Diltiazem 50 mg In Sodium 100 Chloride 0.9% 40 ml @ 5 MG/HR 5 mls/hr IV .Q10H [facility] Rx#:[id number] Oral 118 300 118 Other: # Voids 2 2 - Exam PHYSICAL EXAMINATION: GENERAL: 77-year-old gentleman in no acute distress at the time of my examination HEENT: Head is atraumatic, normocephalic. Pupils equal, round. Sclera anicteric. Conjunctiva are clear. Mucous membranes of the mouth are moist. Neck is supple. There is no elevated jugular venous pressure.] bruit is heard. HEART EXAMINATION: Heart S1, S2 irregularly irregular . No murmur or gallop heard. CHEST EXAMINATION: Lungs reveal few basilar crackles ABDOMEN: Soft, nontender. Bowel sounds are heard. No organomegaly noted. EXTREMITIES: 2+ peripheral pulses with no evidence of peripheral edema and no calf tenderness noted. NEUROLOGIC patient is awake, alert and oriented ?-3. . - Labs CBC & Chem 7: 09/20/17 17:49 09/20/17 17:49 Labs: Microbiology - Last 24 Hours (Table) 09/20/17 17:49 Blood Culture - Preliminary Blood No Growth after 24 hours Assessment and Plan Plan: Assessment and plan #1 Atrial fibrillation with RVR, persistent, on Coumadin for anticoagulation, INR 1.6 yesterday, we will obtain one today. #2 Congestive heart failure. LV function unknown, echo is pending #3 Rule out pneumonia, RLL #4 History of mesothelioma, status post radiation therapy, currently receiving chemotherapy #5History of hyperlipidemia #6 History of hypertension #7 History of sleep apnea syndrome #8 History of benign prostatic hypertrophy Plan IV Cardizem as been discontinued and the dose of verapamil increased to 240 mg daily. We will continue current dose of verapamil and beta oliver. Coumadin to maintain an INR in the range of 2-2.5, discontinue IV Lasix and change to oral. Obtain lytes BUN and creatinine. Echocardiogram with Doppler study will also be reviewed. Patient should be stable for discharge home soon. DNP note has been reviewed, I agree with a documented findings and plan of care. Patient was seen and examined.
[2017-09-22 12:54] VITALS: PULSE 85
[2017-09-22 13:19] LABS: Anion Gap 16 mmol/L; Blood Urea Nitrogen 23 mg/dL (9-20); Calcium 8.6 mg/dL (8.4-10.2); Carbon Dioxide 29 mmol/L (22-30); Chloride 95 mmol/L (98-107); Glucose 143 mg/dL (74-99); Potassium 4.1 mmol/L (3.5-5.1); Sodium 140 mmol/L (137-145)
--- NOTE | 2017-09-22 14:43 | ECHOF ---
Referral Reason:weakness MEASUREMENTS -------- HEIGHT: 182.9 cm WEIGHT: 119.3 kg BP: 105/69 RVIDd: 3.3 cm (< 3.3) IVSd: 1.0 cm (0.6 - 1.1) LVIDd: 5.5 cm (3.9 - 5.3) LVPWd: 1.1 cm (0.6 - 1.1) IVSs: 1.5 cm LVIDs: 3.8 cm LVPWs: 1.5 cm LA Diam: 4.3 cm (2.7 - 3.8) Ao Diam: 2.6 cm (2.0 - 3.7) AV Cusp: 1.4 cm (1.5 - 2.6) LA Diam: 4.5 cm (2.7 - 3.8) MV EXCURSION: 23.905 mm (> 18.000) MV EF SLOPE: 83 mm/s (70 - 150) EPSS: 0.4 cm RAP: 5.00 mmHg RVSP: 46.82 mmHg FINDINGS -------- Sinus rhythm. This was a technically adequate study. LV size, wall thickness and systolic function are normal, with an EF greater than 55%. The left roxanna tricular size is normal. The right ventricle is moderate to severely enlarged. The left atrial size is normal. Normal LA size by volume 22+/-6 ml/m2. The right atrium is moderately enlarged. There is mild aortic valve sclerosis. There is no evidence of aortic regurgitation. Mild mitral annular calcification present. Mild mitral regurgitation is present. Moderate to severe tricuspid regurgitation present. There is mild to moderate pulmonary hypertensio n. The right ventricular systolic pressure, as measured by Doppler, is 46.82mmHg. There is no pulmonic regurgitation present. The aortic root size is normal. There is no pericardial effusion. CONCLUSIONS -------- 1. LV size, wall thickness and systolic function are normal, with an EF greater than 55%. 2. The left ventricular size is normal. 3. The right ventricle is moderate to severely enlarged. 4. The left atrial size is normal. 5. The right atrium is moderately enlarged. 6. There is mild aortic valve sclerosis. 7. Mild mitral annular calcification present. 8. Mild mitral regurgitation is present. 9. Moderate to severe tricuspid regurgitation present. 10. There is mild to moderate pulmonary hypertension. 11. The right ventricular systolic pressure, as measured by Doppler, is 46.82mmHg. 12. There is no pulmonic regurgitation present. 13. The aortic root size is normal. 14. There is no pericardial effusion. [employer] REPRESENTATIVE: Holly Mendoza RDCS
[2017-09-22 17:14] VITALS: BP 101/75; TEMP 96.7
--- NOTE | 2017-09-23 23:17 | DS ---
DISCHARGE SUMMARY DATE OF ADMISSION: September 20, 2017. DATE OF DISCHARGE: September 22, 2017. FINAL DIAGNOSES: 1. Acute congestive heart failure exacerbation from diastolic dysfunction. Ejection fraction 55-60%. 2. Persistent atrial fibrillation rapid ventricular rate. 3. Mesothelioma with associated pleural effusion, chronic. 4. Coumadin monitoring. 5. Essential hypertension. 6. Hyperlipidemia. 7. Obstructive sleep apnea uses CPAP machine. 8. Benign prostatic hypertrophy. 9. Obesity; BMI 35.8. 10.Possible pneumonia. HOSPITAL COURSE: The patient presented with atrial fibrillation, rapid ventricular rate, shortness of breath, found to be in CHF exacerbation. Responded well to IV Lasix. Heart rate was better controlled by the time of discharge. The patient is doing much better. Up and about by the time of discharge. EXAM: Lungs decreased breath sounds. Heart sounds irregular. Psych AO x3. DISCHARGE MEDICATIONS: 1. Xanax 0.25 p.o. daily p.r.n. 2. Ventolin 1-2 puffs q.6h p.r.n. 3. Folic acid 1 mg a day. 4. Mirtazapine 7.5 mg p.o. q.h.s. 5. Ultram 50 mg p.o. q.6 p.r.n. 6. Lopressor 12.5 p.o. b.i.d. 7. Lasix 40 mg p.o. daily. 8. Potassium 20 mEq p.o. daily. 9. Isoptin SR 240 mg p.o. daily. 10.Coumadin 5 mg p.o. daily. CONSULTATIONS: Dr. Palmer from Pulmonary, Dr. Sebastián Saucedo from Cardiology. DC medications as above. FOLLOWUP: Follow up with Dr. Bazan in 1 week, Dr. Green in 3 days, with Dr. Matthews in 1 week. BNP, pro time on 09/27/2017. Discussion and discharge planning more than [address] Green. MMBRANDIEL / AXELN: [id number] /
== END 2017-09-22 17:20 | disposition home or self-care (01) | DRG 291 ==
LOC: EC 16:16 → 6SEL 19:58
PROVIDERS: ADMIT Hospitalist; ATTEND Hospitalist
DX: I11.0 Hypertensive heart disease with heart failure (principal); J18.9 Pneumonia, unspecified organism; I48.1 Persistent atrial fibrillation; I50.33 Acute on chronic diastolic (congestive) heart failure; C45.9 Mesothelioma, unspecified; E66.9 Obesity, unspecified; E78.5 Hyperlipidemia, unspecified; E83.42 Hypomagnesemia; G47.33 Obstructive sleep apnea (adult) (pediatric); I48.2 Chronic atrial fibrillation; N40.0 Benign prostatic hyperplasia without lower urinary tract symptoms; R09.02 Hypoxemia; Z68.35 Body mass index [BMI] 35.0-35.9, adult; Z79.01 Long term (current) use of anticoagulants; Z92.3 Personal history of irradiation; Z79.899 Other long term (current) drug therapy; Z98.42 Cataract extraction status, left eye; Z82.5 Family history of asthma and other chronic lower respiratory diseases
CPT/HCPCS: 36415; 71046; 71275; 80048; 80053; 82550; 82553; 83605; 83735; 83880; 84484; 85025; 85379; 85610; 85730; 87040; 93005; 93306; 94640; 96365; 96366; 96367; 96368; 96375; 96376; 99291

== ENCOUNTER 2018-03-18 12:11 | Inpatient (IN) | payer MEDICARE ==
[2018-03-18] MEDS ORDERED: KETOROLAC 60 MG/2 ML VIAL IVP STA (12:39)
[2018-03-18] MEDS ORDERED: ONDANSETRON 4 MG/2 ML VIAL IVP STA (12:39)
[2018-03-18] MEDS ORDERED: HYDROmorphone 1 MG/ML 1 ML SYRINGE IVP STA (12:39)
[2018-03-18] MEDS ORDERED: SODIUM CHLORIDE 0.9% 1,000 ML IV STA (12:39)
--- NOTE | 2018-03-18 12:43 | ED ---
General Adult HPI - General Chief complaint: Chest Pain Stated complaint: chest pain Time Seen by Provider: 03/18/18 12:15 Source: patient, RN notes reviewed Mode of arrival: wheelchair Limitations: no limitations - History of Present Illness Initial comments: This is a 77-year-old male who presents emergency department with past medical history significant for right sided mesothelioma. Patient states he has quite a bit of chest pain from the mesothelioma. Patient states this pain started getting much worse about a week ago. Patient states it also radiates into his right shoulder radiates down to his elbow. Patient states she's been to chiropractor and that is helped. But it came back in today and it is quite intense. Patient states he's had these exact shoulder and elbow pain in the past from the mesothelioma brought in the last week his been much worse. Patient denies any fever states he has coughed and last night he coughed up some blood. Patient states he is not having any anterior chest discomfort. Patient states he has both shortness of breath and pain with breathing. Patient denies abdominal pain. Patient denies any fever or chills. Patient denies any headache patient denies lightheadedness dizziness or near syncopal episode. - Related Data Home Medications Medication Instructions Recorded Confirmed ALPRAZolam [Xanax] 0.25 mg PO DAILY PRN 08/27/17 09/20/17 Albuterol Inhaler [Ventolin Hfa 1 - 2 puff INHALATION RT-Q6H PRN 08/27/17 Inhaler] Folic Acid 1 mg PO DAILY 08/27/17 09/20/17 Mirtazapine 7.5 mg PO HS 08/27/17 09/20/17 traMADol HCL [Ultram] 50 mg PO Q6H PRN 08/27/17 09/20/17 Metoprolol Tartrate [Lopressor] 12.5 mg PO BID 09/20/17 09/20/17 Previous Rx's Medication Instructions Recorded Furosemide [Lasix] 40 mg PO DAILY #30 tablet 09/22/17 Potassium Chloride ER [K-Dur 20] 20 meq PO DAILY #30 tab 09/22/17 Verapamil Sr [Isoptin Sr] 240 mg PO DAILY #30 tablet.er 09/22/17 Warfarin [Coumadin] 5 mg PO DAILY #30 tab 09/22/17 Allergies Allergy/AdvReac Type Severity Reaction Status Date / Time No Known Allergies Allergy Verified 03/18/18 12:19 Review of Systems ROS Statement: Those systems with pertinent positive or pertinent negative responses have been documented in the HPI. ROS Other: All systems not noted in ROS Statement are negative. Past Medical History Past Medical History: Atrial Fibrillation, Hyperlipidemia, Hypertension, Prostate Disorder, Sleep Apnea/CPAP/BIPAP Additional Past Medical History / Comment(s): hx pleural thickening, cpap, mesothelioma History of Any Multi-Drug Resistant Organisms: None Reported Past Surgical History: Orthopedic Surgery, Tonsillectomy Additional Past Surgical History / Comment(s): rt knee scope, lt eye cataract Past Anesthesia/Blood Transfusion Reactions: Motion Sickness Past Psychological History: No Psychological Hx Reported Smoking Status: Never smoker Past Alcohol Use History: None Reported Past Drug Use History: None Reported - Past Family History Mother Family Medical History: Cancer Additional Family Medical History / Comment(s): cancer Father Family Medical History: Pneumonia Additional Family Medical History / Comment(s): Mesothelioma General Exam - General Exam Comments Initial Comments: GENERAL: Patient is well-developed and well-nourished. Patient is nontoxic and well- hydrated and is in moderate distress. ENT: Neck is soft and supple. No significant lymphadenopathy is noted. Oropharynx is clear. Moist mucous membranes. Neck has full range of motion without eliciting any pain. EYES: The sclera were anicteric and conjunctiva were pink and moist. Extraocular movements were intact and pupils were equal round and reactive to light. Eyelids were unremarkable. PULMONARY: Unlabored respirations. Good breath sounds bilaterally. No audible rales rhonchi or wheezing was noted. CARDIOVASCULAR: There is a regular rate and rhythm without any murmurs gallops or rubs. ABDOMEN: Soft and nontender with normal bowel sounds. SKIN: Skin is clear with no lesions or rashes and otherwise unremarkable. NEUROLOGIC: Patient is alert and oriented x3. Cranial nerves II through XII are grossly intact. Motor and sensory are also intact. Normal speech, volume and content. Symmetrical smile. MUSCULOSKELETAL: Normal extremities with adequate strength and full range of motion. No lower extremity swelling or edema. No calf tenderness. LYMPHATICS: No significant lymphadenopathy is noted PSYCHIATRIC: Normal psychiatric evaluation. Limitations: no limitations Course Vital Signs 03/18/18 03/18/18 03/18/18 12:17 12:28 12:30 Pulse Rate 65 134 H Respiratory 20 40 H Rate Blood Pressure 157/74 171/84 149/120 O2 Sat by Pulse 99 94 L Oximetry 03/18/18 03/18/18 03/18/18 13:00 13:30 14:00 Pulse Rate 123 H 113 H 113 H Respiratory 32 H 26 H 26 H Rate Blood Pressure 129/101 143/111 O2 Sat by Pulse 99 100 98 Oximetry Medical Decision Making - Medical Decision Making EKG shows atrial for ablation with rapid ventricular response at 126 bpm QRS is 92 QT interval 3:30 QTC is 477. Patient's EKG shows no ST segment elevation. I spoke with Dr. Cummings he agreed to admit the patient admitted the patient wrote admitting orders. I consult pulmonary. - Lab Data Result diagrams: 03/18/18 13:00 03/18/18 13:00 Lab Results 03/18/18 03/18/18 03/18/18 Range/Units 13:00 13:00 13:00 WBC 12.6 H (3.8-10.6) k/uL RBC 4.54 (4.30-5.90) m/uL Hgb 12.8 L (13.0-17.5) gm/dL Hct 39.9 (39.0-53.0) % MCV 87.8 (80.0-100.0) fL MCH 28.3 (25.0-35.0) pg MCHC 32.2 (31.0-37.0) g/dL RDW 14.2 (11.5-15.5) % Plt Count 484 H (150-450) k/uL Neutrophils % 87 % Lymphocytes % 6 % Monocytes % 5 % Eosinophils % 1 % Basophils % 0 % Neutrophils # 10.9 H (1.3-7.7) k/uL Lymphocytes # 0.8 L (1.0-4.8) k/uL Monocytes # 0.7 (0-1.0) k/uL Eosinophils # 0.1 (0-0.7) k/uL Basophils # 0.0 (0-0.2) k/uL PT (9.0-12.0) sec INR (<1.2) APTT (22.0-30.0) sec D-Dimer (<0.60) mg/L FEU Sodium 140 (137-145) mmol/L Potassium 4.4 (3.5-5.1) mmol/L Chloride 100 (98-107) mmol/L Carbon Dioxide 23 (22-30) mmol/L Anion Gap 17 mmol/L BUN 26 H (9-20) mg/dL Creatinine 0.73 (0.66-1.25) mg/dL Est GFR (CKD-EPI)AfAm >90 (>60 ml/min/1.73 sqM) Est GFR (CKD-EPI)NonAf >90 (>60 ml/min/1.73 sqM) Glucose 166 H (74-99) mg/dL Calcium 9.5 (8.4-10.2) mg/dL Magnesium 1.7 (1.6-2.3) mg/dL Total Bilirubin 0.9 (0.2-1.3) mg/dL AST 19 (17-59) U/L ALT 19 L (21-72) U/L Alkaline Phosphatase 82 (38-126) U/L Total Creatine Kinase <20 L (55-170) U/L CK-MB (CK-2) <0.2 (0.0-2.4) ng/mL CK-MB (CK-2) Rel Index Troponin I <0.012 (0.000-0.034) ng/mL Total Protein 7.1 (6.3-8.2) g/dL Albumin 3.3 L (3.5-5.0) g/dL 03/18/18 Range/Units 13:00 WBC (3.8-10.6) k/uL RBC (4.30-5.90) m/uL Hgb (13.0-17.5) gm/dL Hct (39.0-53.0) % MCV (80.0-100.0) fL MCH (25.0-35.0) pg MCHC (31.0-37.0) g/dL RDW (11.5-15.5) % Plt Count (150-450) k/uL Neutrophils % % Lymphocytes % % Monocytes % % Eosinophils % % Basophils % % Neutrophils # (1.3-7.7) k/uL Lymphocytes # (1.0-4.8) k/uL Monocytes # (0-1.0) k/uL Eosinophils # (0-0.7) k/uL Basophils # (0-0.2) k/uL PT 84.5 H (9.0-12.0) sec INR 8.6 H* (<1.2) APTT 62.3 H (22.0-30.0) sec D-Dimer 0.50 (<0.60) mg/L FEU Sodium (137-145) mmol/L Potassium (3.5-5.1) mmol/L Chloride (98-107) mmol/L Carbon Dioxide (22-30) mmol/L Anion Gap mmol/L BUN (9-20) mg/dL Creatinine (0.66-1.25) mg/dL Est GFR (CKD-EPI)AfAm (>60 ml/min/1.73 sqM) Est GFR (CKD-EPI)NonAf (>60 ml/min/1.73 sqM) Glucose (74-99) mg/dL Calcium (8.4-10.2) mg/dL Magnesium (1.6-2.3) mg/dL Total Bilirubin (0.2-1.3) mg/dL AST (17-59) U/L ALT (21-72) U/L Alkaline Phosphatase (38-126) U/L Total Creatine Kinase (55-170) U/L CK-MB (CK-2) (0.0-2.4) ng/mL CK-MB (CK-2) Rel Index Troponin I (0.000-0.034) ng/mL Total Protein (6.3-8.2) g/dL Albumin (3.5-5.0) g/dL Disposition Clinical Impression: Pleural effusion, History of malignant mesothelioma, Dyspnea, Chest pain, Coagulopathy Disposition: ADMITTED IP TO THIS HOSP Referrals: Santiago Green DO [Primary Care Provider] - 1-2 days Time of Disposition: 15:07
[2018-03-18 13:17] LABS: Basophils % (A) 0 %; Eosinophils # (A) 0.1 k/uL (0-0.7); Eosinophils % (A) 1 %; HCT 39.9 % (39.0-53.0); HGB 12.8 gm/dL (13.0-17.5); Lymphocytes # (A) 0.8 k/uL (1.0-4.8); Lymphocytes % (A) 6 %; MCH 28.3 pg (25.0-35.0); MCHC 32.2 g/dL (31.0-37.0); MCV 87.8 fL (80.0-100.0); Mean Platelet Volume 6.5; Monocytes # (A) 0.7 k/uL (0-1.0); Monocytes % (A) 5 %; Neutrophils # (A) 10.9 k/uL (1.3-7.7); Neutrophils % (A) 87 %; Platelet Count 484 k/uL (150-450); RBC 4.54 m/uL (4.30-5.90); RDW 14.2 % (11.5-15.5); WBC 12.6 k/uL (3.8-10.6)
[2018-03-18 13:33] LABS: ALT 19 U/L (21-72); AST 19 U/L (17-59); Albumin 3.3 g/dL (3.5-5.0); Alkaline Phosphatase 82 U/L (38-126); Anion Gap 17 mmol/L; Blood Urea Nitrogen 26 mg/dL (9-20); Calcium 9.5 mg/dL (8.4-10.2); Carbon Dioxide 23 mmol/L (22-30); Chloride 100 mmol/L (98-107); Glucose 166 mg/dL (74-99); Magnesium 1.7 mg/dL (1.6-2.3); Potassium 4.4 mmol/L (3.5-5.1); Sodium 140 mmol/L (137-145); Total Bilirubin 0.9 mg/dL (0.2-1.3); Total Protein 7.1 g/dL (6.3-8.2)
[2018-03-18 13:34] LABS: Creatine Kinase <20 U/L (55-170)
[2018-03-18 13:36] LABS: D-Dimer 0.5 mg/L FEU (<0.60); Prothrombin Time 84.5 sec (9.0-12.0)
[2018-03-18 13:40] LABS: INR 8.6 (<1.2); Partial Thromboplastin Time 62.3 sec (22.0-30.0)
--- NOTE | 2018-03-18 13:40 | XR ---
EXAMINATION TYPE: XR chest 2V DATE OF EXAM: 03/18/2018 COMPARISON: 09/20/2017 HISTORY: 77-year-old male with chest pain, history of right-sided mesothelioma TECHNIQUE: AP and lateral views FINDINGS: Multiple calcified pleural plaques are present bilaterally. There is new complete to near complete op acification of the right hemithorax. No significant shift of the heart into the right hemithorax. 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 Suspect worsening large right pleural effusion with underlying atelectasis and pa arturont's known neoplasm.
[2018-03-18 13:48] LABS: Creatine Kinase MB <0.2 ng/mL (0.0-2.4); Troponin I <0.012 ng/mL (0.000-0.034)
[2018-03-18] MEDS: HYDROmorphone 1 MG/ML 1 ML SYRINGE IVP PRN ×2 (16:30→20:37)
--- NOTE | 2018-03-18 19:21 | CT ---
EXAMINATION TYPE: CT chest wo con DATE OF EXAM: 03/18/2018 COMPARISON: 09/20/2017. Radiographs today HISTORY: 77-year-old male Difficulty breathing. History of lung cancer. TECHNIQUE: Contiguous axial scanning of the chest without IV contrast. Coronal and sagittal reconstru ctions performed. CT DLP: 530.1 mGycm Automated exposure control for dose reduction was used. FINDINGS: Heart normal size with trace right-sided basilar pericardial effusion. Enlarging right-sided pericardial lymph nodes measuring now up to 1.7 cm. Some right paratracheal lym ph nodes are slightly increased measuring up to 8 mm. New right supraclavicular lymphadenopathy measu ring up to 2.7 cm. 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 Asymmetric mild left-sided gynecomastia, slightly increased. Extensive right perihilar opacification has a somewhat lobulated appearance. The graft abnormal lobul ated pleural-based soft tissue right upper lobe redemonstrated. Adjacent consolidation throughout the right upper lobe is new. There is a large right-sided pleural effusion which has thickened internal septations and a loculated appearance now measuring up to 20.7 cm craniocaudal by 20.4 cm AP by 14.6 cm wide. Pleural-based calcifications. Several of the internal septations are more irregularly configured at t he right posterior costophrenic angle. Density approaches 65 Hounsfield units. No focal erosion of the right posterior third rib appears relatively similar, 4 axial image 10. There is complete cutoff of the bronchus intermedius now. Scattered pulmonary nodules at the left base are now noted measuring up to 8 mm are now noted. Gallbladder mildly hydropic measuring up to 4.5 cm wide. 3.1 cm hypodense lesion, likely cyst lateral left kidney. No discrete lesion of the adrenal glands. Bones: Focal erosion right posterior third rib as mentioned above no obvious new rib abnormality is i dentified. IMPRESSION: 1. ASBESTOS RELATED PLEURAL DISEASE WITH KNOWN RIGHT UPPER LOBE PLEURAL-BASED MASS. LACK OF IV CONTRA ST MAKES DELINEATION OF THE MASS DIFFICULT. DISEASE HAS PROGRESSED NOW WITH RIGHT PERICARDIAL AND SUP RACLAVICULAR LYMPHADENOPATHY (MEASURING UP TO 2.7 CM) AND NUMEROUS NEW LEFT-SIDED PULMONARY NODULES M EASURING UP TO 8 MM. 2. ENLARGING COMPLEX AND NOW LOCULATED APPEARING RIGHT PLEURAL EFFUSION MEASURING UP TO 20.7 CM. THER E ARE INTERNAL THICKENED SEPTATIONS BUT WITH MORE IRREGULARLY CONFIGURED DENSITY AT THE POSTERIOR COS TOPHRENIC ANGLE WITH SLIGHTLY HIGH ATTENUATION. SOME HEMORRHAGE INTO THE PLEURAL EFFUSION IS DIFFICUL T TO EXCLUDE. CORRELATE WITH HEMATOCRIT/HEMOGLOBIN LEVELS AND POSSIBLE THORACENTESIS. 3. FOCAL EROSION INTO THE POSTERIOR RIGHT THIRD RIB APPEARS RELATIVELY SIMILAR COMPARED TO 8. 4. NEW EXTENSIVE CONSOLIDATION RIGHT UPPER LOBE COULD REPRESENT SUPERIMPOSED PNEUMONIA. 5. NEW CUT OFF AT THE LEVEL OF THE BRONCHUS INTERMEDIUS WITH RIGHT MIDDLE AND LOWER LOBE COLLAPSE. 5. MILDLY HYDROPIC GALLBLADDER PROBABLY DUE TO FASTING STATE. IF RIGHT UPPER QUADRANT PAIN OR CONCERN FOR EARLY ACUTE CHOLECYSTITIS, FOLLOW-UP ULTRASOUND OR HIDA SCAN.
[2018-03-18] MEDS ORDERED: PHYTONADIONE ORAL 5 MG/5 ML ORAL.SYRG PO STA ×2 (21:19→23:08)
[2018-03-18] MEDS ORDERED: PROCHLORPERAZINE 10 MG TAB PO PRN (21:37)
[2018-03-18] MEDS ORDERED: ALPRAZolam 0.25 MG TAB PO PRN (21:37)
[2018-03-18] MEDS ORDERED: ALBUTEROL NEBULIZED 2.5 MG/3 ML INHALATION PRN (21:37)
[2018-03-18] MEDS: VERAPAMIL SR 180 MG TABLET.ER PO SCH (22:15)
[2018-03-18] MEDS ORDERED: IPRATROPIUM-ALBUTEROL 3 ML NEB INHALATION PRN (23:08)
[2018-03-18] MEDS ORDERED: HYDROmorphone 0.5 MG/0.5 ML SYRINGE IVP PRN (23:10)
[2018-03-18] MEDS ORDERED: TEMAZEPAM 15 MG CAP PO PRN (23:10)
--- NOTE | 2018-03-19 00:25 | HP ---
HISTORY AND PHYSICAL DATE OF SERVICE: 03/18/2018. CHIEF COMPLAINT: Shortness of breath and chest pain. HISTORY: This 77-year-old gentleman with a past history of atrial fibrillation, hypertension, family history of prostate disease, mesothelioma on the right side, being for Dr. Green in the outpatient setting, is also seeing [facility] oncologist, Dr. Vines. The patient is complaining of left-sided chest pain shortness which is progressive in character. The patient was supposed to have a PET scan this Sunday and appointment with [facility] next Sunday. Because of increased symptoms, the patient came to [facility]. Chest x-ray showed right-sided white out areas. CT scan of the chest ordered showed asbestosis, multiple findings, and significant pleural effusion on the right side and enlarged complex loculated mass lesion as well. The patient was admitted for further evaluation and treatment. There is no history of fevers or rigors. No history of headache, loss conscious, seizures, fevers or chills. No history of headache, loss conscious seizures at this time. PAST MEDICAL HISTORY: Atrial fibrillation, hyperlipidemia, hypertension, prostate disorder, sleep apnea, history of pleural thickening. MEDICATIONS: Home medications are: 1. Ultram 50 mg every 6 hours p.r.n. 2. Oxycodone 5 mg every 6 hours p.r.n. 3. Coumadin 7.5 mg p.o. and 5 mg Sunday, Sunday, Sunday, Sunday, Sunday. 4. Verapamil ER 180 mg at bedtime. 6. Compazine 10 mg every 6 hours p.r.n. 7. Vitamin K 20 mg p.o. daily. 8. Lasix 40 mg p.o. daily. 9. Folic acid 1 mg daily. 10.Albuterol 1 to 2 puffs every 6 hours p.r.n. 11.Xanax 0.5 mg daily p.r.n. 12.Remeron 7.5 mg at bedtime. ALLERGIES: None. FAMILY HISTORY: History of cancer in the family. SOCIAL HISTORY: History of exposure to asbestos apparently. History of alcohol. No history of smoking. REVIEW OF SYSTEMS: ENT: No diminished vision or hearing. CARDIOVASCULAR: None. GI: As mentioned. : No dysuria or hematuria. NERVOUS SYSTEM: No numbness or weakness. ALLERGY: As mentioned. MUSCULOSKELETAL: As mentioned. DERMATOLOGY: As mentioned. ENDOCRINE: No history of diabetes or hypothyroidism. CONSTITUTIONAL: Negative. DERMATOLOGY: Negative. RHEUMATOLOGY: Negative. PSYCHIATRY: As mentioned earlier. PHYSICAL EXAM: Alert, oriented x3. Pulse 110, blood pressure 130/80, respirations 16, temperature 98 degrees, pulse ox 97% on nasal cannula 2 L. HEENT: Conjunctivae normal. Oral mucosa moist. NECK: No JVD. No lymph node enlargement. CARDIOVASCULAR: S1 and S2. LUNGS: Breath sounds diminished at the bases. Breathing efforts are markedly increased. Bilateral scattered rhonchi and crackles. Expiratory wheezing also. Breath sounds markedly diminished anteriorly to right side. ABDOMEN: Soft, nontender. No mass palpable. LEGS: No edema, no swelling. NERVOUS SYSTEM: Higher functions as mentioned. Moves all 4 limbs. No focal motor deficits. LYMPHATICS: No lymph nodes palpable. SKIN: No rashes. LABS: WBC 12.2, hemoglobin 12.8, INR is 8.6, and creatinine less than 20. CT scan and chest x- ray reviewed personally. ASSESSMENT: 1. Acute right-sided chest pain with possibly right pleural effusion, possibly malignant. 2. Right-sided mesothelioma. 3. History of asbestosis. 4. Increased WBC. 5. Anemia. 6. Coumadin coagulopathy. 7. Right-sided chest pain. 8. History of atrial fibrillation. 9. Hypertension. 10.Hyperlipidemia. 11.History of prostate disease. 12.History of sleep apnea. 13.History of pleural thickening. 14.History of enlarged prostate. 15.History of degenerative joint disease. PLAN AND DISCUSSION: This 77-year-old gentleman who presented with multiple complex medical issues, will monitor the patient closely, continue the current management and treatment. I recommend symptomatic treatment of the pain. Otherwise, I would also recommend consulting Dr. Hand and possibly thoracocentesis. Resume the home medications. I would also recommend intensive bronchodilators at this time. Prognosis guarded because of multiple complex medical issues. Further recommendations to follow. Patient is off Coumadin now and we will administer vitamin K also. MMODL / IJN: [id number] / MTDD
[2018-03-19] MEDS: HYDROmorphone 1 MG/ML 1 ML SYRINGE IVP PRN ×4 (00:42→18:47)
[2018-03-19] MEDS: oxyCODONE-APAP 5-325MG 1 EACH TAB PO PRN ×3 (01:12→21:59)
[2018-03-19] MEDS: traMADol 50 MG TAB PO PRN (04:01)
[2018-03-19 06:51] LABS: Basophils % (A) 0 %; Eosinophils % (A) 0 %; HCT 40.5 % (39.0-53.0); HGB 12.9 gm/dL (13.0-17.5); Hypochromasia Slight; Lymphocytes # (A) 0.8 k/uL (1.0-4.8); Lymphocytes % (A) 6 %; MCHC 31.9 g/dL (31.0-37.0); MCV 90.9 fL (80.0-100.0); Mean Platelet Volume 6.3; Monocytes # (A) 0.8 k/uL (0-1.0); Monocytes % (A) 6 %; Neutrophils # (A) 10.5 k/uL (1.3-7.7); Neutrophils % (A) 85 %; Platelet Count 479 k/uL (150-450); RBC 4.46 m/uL (4.30-5.90); RDW 14.2 % (11.5-15.5); WBC 12.3 k/uL (3.8-10.6)
[2018-03-19 07:01] LABS: INR 4.9 (<1.2); Prothrombin Time 46.9 sec (9.0-12.0)
[2018-03-19 07:27] LABS: Anion Gap 12 mmol/L; Blood Urea Nitrogen 26 mg/dL (9-20); Calcium 9.4 mg/dL (8.4-10.2); Carbon Dioxide 26 mmol/L (22-30); Chloride 104 mmol/L (98-107); Glucose 125 mg/dL (74-99); Potassium 4.9 mmol/L (3.5-5.1); Sodium 142 mmol/L (137-145)
[2018-03-19] MEDS ORDERED: PANTOPRAZOLE 40 MG TABLET PO SCH (07:30)
[2018-03-19] MEDS: FOLIC ACID 1 MG TAB PO SCH (08:34)
[2018-03-19] MEDS: POTASSIUM CHLORIDE ER 20 MEQ TAB.ER PO SCH (08:34)
[2018-03-19] MEDS: FUROSEMIDE 40 MG TAB PO SCH (08:34)
[2018-03-19] MEDS: IPRATROPIUM-ALBUTEROL 3 ML NEB INHALATION SCH ×4 (08:43→21:09)
--- NOTE | 2018-03-19 08:59 | US ---
EXAMINATION TYPE: US chest DATE OF EXAM: 03/19/2018 COMPARISON: Correlation CT chest 03/18/2018 CLINICAL HISTORY: 77-year-old male right pleural effusion. Right lung mesothelioma. TECHNIQUE: Targeted ultrasound of the posterior lower right hemithorax FINDINGS: EXAM MEASUREMENTS: Right Pleural Effusion pocket size: 8.5 cm Right skin surface to fluid distance: 3.5 cm No effusion on the left. Pulmonologists are able to review the images in the patient?s EMR. Highly complex loculated fluid pocket right side; did not katey for thoracentesis. IMPRESSIONS: Highly complex large right pleural fusion. Given the highly complex appearance, some underlying neopl astic soft tissue is possible as well.
--- NOTE | 2018-03-19 14:01 | P.CNPUL ---
History of Present Illness Consult date: 03/19/18 Requesting physician: Kari Cummings Reason for consult: dyspnea, abnormal CXR/CT Chief complaint: Right-sided chest pain and shortness of breath History of present illness: This is a very pleasant 77-year-old gentleman who follows with Dr. Green as his primary care physician. He has a history of atrial fibrillation anticoagulated with warfarin, hypertension, hyperlipidemia. He also has a history of mesothelioma involving the right lung and obstructive sleep apnea utilizing CPAP in the outpatient setting. He follows with Dr. Matthews our office for the same. He had been receiving chemotherapy up until August 2017 where he was having ongoing consultations with atrial fibrillation and has not received any chemotherapy since. He follows with Dr. Vines at the [facility] for treatments. He had also been following with Dr. Velasco here at [facility] for radiation therapy and his last radiation treatment was about one and half months ago. He presented here to the emergency room yesterday with significant right-sided chest pain. His been getting worse over the past week. It is radiating into the right shoulder and down to his right elbow. He denies any significant shortness of breath, cough or congestion. No hemoptysis. Chest x-ray reveals near complete opacification of the right hemithorax on a background his asbestos-related pleural disease. There is also worsening large right-sided pleural effusion as compared to previous x-ray in September. Computed tomography scan revealed asbestos-related pleural disease with known right upper lobe pleural-based mass. Progression is noted with a now a large right pericardial and supraclavicular lymphadenopathy and numerous new left-sided pulmonary nodules. There is a new cutoff at the level of the bronchus intermedius with right middle lobe and lower lobe collapse. There is also noted focal erosion into the posterior right third rib. Patient is seen today in consultation on the selective care unit. He is awake and alert. He is having ongoing issues with right-sided chest discomfort radiating up into his right shoulder and right elbow. He denies any worsening shortness of breath though is dyspneic on exertion. He is maintaining O2 saturations in the mid 90s on room air. He's been afebrile. Somewhat tachycardic. White count 12.3. Hemoglobin 12.9. Initial INR 8.6, currently 4.9. Creatinine 0.63. He is currently receiving Dilaudid, Percocet, Ultram. Review of Systems Constitutional: Reports fatigue, Reports poor appetite, Reports weakness Eyes: denies blurred vision, denies decreased vision Ears: deny: decreased hearing Ears, nose, mouth and throat: Denies headache, Denies sore throat Cardiovascular: Reports dyspnea on exertion, Reports rapid heart beat, Reports shortness of breath Respiratory: Reports dyspnea, Reports pain on inspiration Gastrointestinal: Reports abdominal pain, Reports bloating, Reports nausea Genitourinary: Reports as per HPI Musculoskeletal: Reports limitation of motion, Reports shooting arm pain Musculoskeletal: right: elbow pain, shoulder pain Integumentary: Denies pruritus, Denies rash Neurological: Denies numbness, Denies weakness Psychiatric: Reports anxiety Endocrine: Denies fatigue, Denies weight change Hematologic/Lymphatic: Reports easy bruising Allergic/Immunologic: Reports as per HPI Past Medical History Past Medical History: Atrial Fibrillation, Hyperlipidemia, Hypertension, Prostate Disorder, Sleep Apnea/CPAP/BIPAP Additional Past Medical History / Comment(s): hx pleural thickening, cpap, mesothelioma, enlarged prostrate, History of Any Multi-Drug Resistant Organisms: None Reported Past Surgical History: Orthopedic Surgery, Tonsillectomy Additional Past Surgical History / Comment(s): rt knee scope, bilat eye cataract Past Anesthesia/Blood Transfusion Reactions: No Reported Reaction Past Psychological History: No Psychological Hx Reported Smoking Status: Never smoker Past Alcohol Use History: None Reported Past Drug Use History: None Reported - Past Family History Mother Family Medical History: Cancer Additional Family Medical History / Comment(s): cancer Father Family Medical History: Pneumonia Additional Family Medical History / Comment(s): Mesothelioma Medications and Allergies Home Medications Medication Instructions Recorded Confirmed Type ALPRAZolam [Xanax] 0.25 mg PO DAILY PRN 08/27/17 03/18/18 History Albuterol Inhaler [Ventolin Hfa 1 - 2 puff INHALATION RT-Q6H PRN 08/27/17 History Inhaler] Folic Acid 1 mg PO DAILY 08/27/17 03/18/18 History Mirtazapine 7.5 mg PO HS 08/27/17 09/20/17 History traMADol HCL [Ultram] 50 mg PO Q6H PRN 08/27/17 03/18/18 History Furosemide [Lasix] 40 mg PO DAILY #30 tablet 09/22/17 03/18/18 Rx Potassium Chloride ER [K-Dur 20] 20 meq PO DAILY #30 tab 09/22/17 03/18/18 Rx Prochlorperazine [Compazine] 10 mg PO Q6HR PRN 03/18/18 03/18/18 History Verapamil HCl [Calan] 120 mg PO DAILY 03/18/18 03/18/18 History Verapamil HCl [Verapamil ER] 180 mg PO HS 03/18/18 03/18/18 History Warfarin [Coumadin] 5 mg PO SUMOWEFRSA 03/18/18 03/18/18 History Warfarin [Coumadin] 7.5 mg PO TUTH 03/18/18 03/18/18 History oxyCODONE-APAP 5-325MG [Percocet 1 tab PO Q6HR 03/18/18 03/18/18 History 5-325 mg] Allergies Allergy/AdvReac Type Severity Reaction Status Date / Time No Known Allergies Allergy Verified 03/18/18 16:13 Physical Exam Vitals: Vital Signs Temp Pulse Pulse Resp BP BP Pulse Ox 03/19/18 12:37 120 H 03/19/18 12:27 107 H 16 03/19/18 08:54 118 H 03/19/18 08:43 121 H 20 91 L 03/19/18 08:00 97.9 F 92 18 120/67 94 L 03/19/18 04:00 98 F 89 18 100/63 92 L 03/18/18 23:13 97.5 F L 105 H 18 121/69 97 03/18/18 20:39 98.0 F 110 H 16 134/86 97 03/18/18 20:15 97.0 F L 112 H 16 134/86 99 03/18/18 20:00 97.7 F 114 H 18 149/98 97 03/18/18 15:30 112 H 19 107/91 99 03/18/18 15:00 112 H 10 L 134/90 97 03/18/18 14:30 115 H 20 130/82 99 03/18/18 14:00 113 H 26 H 143/111 98 Intake and Output 03/18/18 03/19/18 03/19/18 22:59 06:59 14:59 Intake Total 10 10 240 Balance 10 10 240 Intake: IV 10 10 0.9 10 10 Oral 240 Other: Weight 97.522 kg 94.4 kg - Constitutional General appearance: disheveled, mild distress, thin - EENT Eyes: EOMI, PERRLA ENT: hearing grossly normal Ears: bilateral: normal - Neck Neck: normal ROM Carotids: bilateral: upstroke normal Thyroid: bilateral: normal size - Respiratory Respiratory: right: diminished, dullness, rales - Cardiovascular Rhythm: irregularly irregular Heart sounds: normal: S1, S2 - Gastrointestinal General gastrointestinal: normal bowel sounds - Integumentary Integumentary: normal turgor - Neurologic Neurologic: CNII-XII intact - Musculoskeletal Musculoskeletal: generalized weakness - Psychiatric Psychiatric: A&O x's 3, appropriate affect, intact judgment & insight Results - Laboratory Findings CBC and BMP: 03/19/18 06:27 03/19/18 06:27 PT/INR, D-dimer PT 46.9 sec (9.0-12.0) H 03/19/18 06:27 INR 4.9 (<1.2) H 03/19/18 06:27 D-Dimer 0.50 mg/L FEU (<0.60) 03/18/18 13:00 Abnormal lab findings: Abnormal Labs 03/18/18 03/18/18 03/18/18 13:00 13:00 13:00 WBC 12.6 H Hgb 12.8 L Plt Count 484 H Neutrophils # 10.9 H Lymphocytes # 0.8 L PT INR APTT BUN 26 H Creatinine Glucose 166 H ALT 19 L Total Creatine Kinase <20 L Albumin 3.3 L 03/18/18 03/19/18 03/19/18 13:00 06:27 06:27 WBC 12.3 H Hgb 12.9 L Plt Count 479 H Neutrophils # 10.5 H Lymphocytes # 0.8 L PT 84.5 H 46.9 H INR 8.6 H* 4.9 H APTT 62.3 H BUN Creatinine Glucose ALT Total Creatine Kinase Albumin 03/19/18 06:27 WBC Hgb Plt Count Neutrophils # Lymphocytes # PT INR APTT BUN 26 H Creatinine 0.63 L Glucose 125 H ALT Total Creatine Kinase Albumin - Diagnostic Findings Chest x-ray: image reviewed CT scan - chest: image reviewed Assessment and Plan Assessment: Impression: #1 Right-sided chest discomfort secondary to significant right-sided loculated pleural effusion and a history of mesothelioma with erosion into the right third posterior rib. Extensive consolidation of the right upper lobe and a new cutoff level of the bronchus intermedius with right middle and lower lobe collapse. #2 Progression of mesothelioma with a new right paracardial and supraclavicular lymphadenopathy and numerous new left-sided pulmonary nodules. #3 History of mesothelioma last chemotherapy received in August 2017, discontinued due to ongoing issues with atrial fibrillation. He follows with Dr. Vines out of [facility]. The patient was also receiving radiation therapy here with Dr. Velasco last treatment one and half months ago. #4 Mildly hydropic gallbladder #5 Atrial fibrillation, anti-quite elated with warfarin, supra therapeutic presenting INR 8.6, currently 4.9. #6 History of congestive heart failure. #7 Hyperlipidemia. #8 Hypertension. #9 Obstructive sleep apnea utilizing CPAP in the outpatient setting. #10 Benign prostatic hypertrophy. James: The patient was seen and evaluated by Dr. Hand. Chest x-ray, CAT scan and ultrasound of the right chest were all reviewed. The fluid is significantly loculated. No plans for thoracentesis. We will consult interventional radiology for possible pigtail catheter placement. Consult radiation oncology and medical oncology for pain control. Continue current medications for now. Continue bronchodilators. Add incentive spirometer. Continue to hold warfarin. We will continue to follow and make further recommendations based on his clinical status. I, the cosigning physician, performed a history & physical examination of the patient. Lungs sounds with crackles, diminished, dullness in the right lung.. Maintaining good O2 saturations in the 90s on room air. I discussed the assessment and plan of care with my nurse practitioner, Shae Bianchi. I attest to the above note as dictated by her. Time with Patient: Greater than 30
[2018-03-19] MEDS ORDERED: HYDROmorphone 1 MG/ML 1 ML SYRINGE IVP PRN (14:34)
[2018-03-19] MEDS: VERAPAMIL SR 120 MG TABLET.ER PO SCH (15:12)
--- NOTE | 2018-03-19 15:37 | CONS ---
PSYCHIATRIC CONSULTATION DATE OF SERVICE: 03/19/2018 . PURPOSE FOR CONSULTATION: Evaluate for depression. HISTORY OF PRESENT ILLNESS: The patient is a 77-year-old male. He was admitted to the medical floor with complaints of left chest pain and shortness of breath. He has a history of right-sided mesothelioma and was diagnosed with a right pleural effusion. He was diagnosed 1 year ago with mesothelioma and has had progressive problems. He currently is receiving chemo and radiation therapy. He says that pain issues have progressively worsened for him. In addition, his in June. He says the concurrence of these 2 issues has made this past year "a living hell." He sleeps poorly. He has had loss of appetite, especially more recently. He says he has lost 90 pounds. He says it has been very stressful for him needing to go to the [facility] for chemotherapy and coming to [facility] for his radiation. He acknowledges increasing problems with anxiety and depressed mood. He has loss of motivation energy and interest. He says that his 2 sons who live nearby are a strong supports and are continually pushing him to stay involved in his treatment and other activities. He says otherwise it would be very difficult for him to engage. 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 He does not have a past history of any psychiatric issues. It is noted that currently psychotropic medications he is on include includes Remeron 7.5 mg at bedtime. Restoril 15 mg at bedtime and Xanax 0.25 mg p.r.n. in addition, he is on Dilaudid, Percocet, and tramadol as other psychoactive medications. He also has cardiac issues including a history of atrial fibrillation. He also has sleep apnea. When I interviewed the patient, he was complaining of the struggles he has had in his mood, managing grief and pain along with just keeping up with the demands of his situation. He acknowledges that depression is a significant factor for him. He does not identify any issues of hallucinations or delusions. It was not clear that he has had any significant past trauma issues. He does report anxiety, though does not clearly identify panic symptoms. MENTAL STATUS EXAM: Patient was lying in bed. He gave fair eye contact. Psychomotor activity was slowed. He spoke in a soft monotone voice. He answered questions appropriately. His thoughts were clear and coherent. His affect was anxious. He had a depressed mood. He was significantly distressed. I deferred doing a formal cognitive evaluation but the patient was well oriented and alert. He was able to give me a number of specifics of his current and past treatment. He was able to give details of recent events as well as past. He could name several of the doctors he has been working with. Insight is fairly good. ASSESSMENT: This 77-year-old male likely has ongoing major depression related to major stress issues in his life. I reviewed the case with the nurse practitioner, Analy Rice, working with Dr. Cummings. We discussed treatment options for his depression. I will start the patient on Prozac 10 mg a day. I will look to titrate to 20 mg a day within 3 or 4 days as long as it is tolerated. In addition, I will start the patient on Ritalin 5 mg in the morning. The aim of Ritalin is to help augment antidepressant response. Ritalin often has a more rapid onset of benefits for depression compared to standard antidepressants. We will need to monitor for any cardiac effects relating to Ritalin more so than Prozac. I will have staff monitor pulse after his dosing. If he tolerates the Ritalin, I would look to titrate up fairly quickly, possibly to a 10 mg dose within a few days and then 10 mg in the morning and 5-10 mg around 2:00 pm as a fairly standard dose for depression. In regards to response to Ritalin for depression, we often see benefits showing up within 3 or 4 days, especially once he gets on a little bit higher dose. Of course, the issue of his history of atrial fibrillation will need to be taking into account. Prozac should be titrated at least to 20 mg a day and may be a medicine that he continues on longer-term. Though on the short run , he is not likely to see much benefit from that medication. It would be reasonable at this point to continue Remeron which I assume has been prescribed primarily for appetite and sleep benefits. I would be cautious around use of benzodiazepines including Xanax as well as Restoril due to side effects including potential exacerbation of depression. While there may be some concern about appetite suppression from Ritalin, it is more likely to improve overall response to depression and thus improve appetite rather than not. I will continue to follow. MMODL / IJN: [id number] / CHRISTY
[2018-03-19] MEDS: METHYLPHENIDATE HCL 5 MG TAB PO SCH (17:11)
[2018-03-19] MEDS: FLUoxetine HCL 10 MG CAP PO SCH (17:11)
[2018-03-19 17:53] LABS: Appearance,Urine Clear (Clear); Bilirubin,Urine Negative (Negative); Blood,Urine Negative (Negative); Color,Urine Yellow; Glucose,Urine (UA) Negative (Negative); Ketones,Urine Negative (Negative); Leukocyte Esterase,Urine Negative (Negative); Nitrite,Urine Negative (Negative); Protein,Urine Negative (Negative); Specific Gravity,Urine 1.011 (1.001-1.035); Urobilinogen,Urine <2.0 mg/dL (<2.0)
--- NOTE | 2018-03-19 21:05 | P.PN ---
Subjective Progress Note Date: 03/19/18 Progress note being dictated for . Interval history: This a 77-year-old gentleman admitted with acute severe chest pain, possible right pleural effusion possible malignancy, right-sided mesothelioma, history of asbestosis, depression with recent passing of in June 2017, and multiple other medical issues. Received vitamin K with INR down to 4.9. Maintaining O2 sats in the mid 90s on room air. Afebrile. WBC 12.3. Telemetry atrial fibrillation, controlled at rest. Heart rate up to the 160s with activity. Chest x-ray reporting near complete opacification of right hemothorax on background of up acidosis related pleural disease, worsening large right-sided pleural effusion. CT reported loculated fluid, progressive abestosis related pleural disease with new large right pericardial and supraclavicular lymphadenopathy, new left-sided pulmonary nodules, new cutoff at the level of the bronchus with right middle and lower lobe collapse,eroded right third rib, increasing descending aorta mild aneurysm 3.3 cm. Incidental finding of hydropic gallbladder possibly related to poor diet intake. Receiving Ultram, Dilaudid, Percocet for right lateral radiating chest pain. Review of systems: CONSTITUTIONAL: No fever, positive fatigue. HEENT: No recent visual problems or hearing problems. Denied any sore throat. No hemoptysis. CARDIOVASCULAR: Right axilla pain extending to lateral chest extending down rib cage to hip, no palpitations, no syncope. Positive palpitations PULMONARY: shortness of breath, positive cough, no hemoptysis. GASTROINTESTINAL: Diet intake poor.denies weight loss. No diarrhea, no nausea, no vomiting, no abdominal pain. Positive bloating. Normoactive bowel sounds. NEUROLOGICAL: No headaches, generalized weakness HEMATOLOGICAL: Denies any bleeding or petechiae. GENITOURINARY: Denies any burning micturition, frequency, or urgency. MUSCULOSKELETAL/RHEUMATOLOGICAL: As mentioned, generalized weakness, right shoulder, right elbow, ENDOCRINE: Denies any polyuria or polydipsia. PSYCHIATRIC: Positive anxiety, positive depression- June 2017, diagnosed a year ago with mesothelioma. The rest of the 14 point review of systems is negative Active Medications Albuterol Sulfate (Ventolin Nebulized) 2.5 mg INHALATION RT-Q6H PRN PRN Reason: SHORTNESS OF BREATH Albuterol/Ipratropium (Duoneb 0.5 Mg-3 Mg/3 Ml Soln) 3 ml INHALATION RT-QID [facility] Last Admin: 03/19/18 16:16 Dose: 3 ml Albuterol/Ipratropium (Duoneb 0.5 Mg-3 Mg/3 Ml Soln) 3 ml INHALATION RT-QID PRN PRN Reason: Shortness Of Breath Or Wheezing Alprazolam (Xanax) 0.25 mg PO DAILY PRN PRN Reason: Anxiety Last Admin: 03/19/18 04:01 Dose: 0.25 mg Fluoxetine HCl (Prozac) 10 mg PO DAILY [facility] Last Admin: 03/19/18 17:11 Dose: Not Given Folic Acid (Folic Acid) 1 mg PO DAILY@1200 [facility] Last Admin: 03/19/18 08:34 Dose: 1 mg Furosemide (Lasix) 40 mg PO DAILY [facility] Last Admin: 03/19/18 08:34 Dose: 40 mg Hydromorphone HCl (Dilaudid) 1 mg IVP Q4HR PRN PRN Reason: Pain Last Admin: 03/19/18 18:47 Dose: 1 mg Hydromorphone HCl (Dilaudid) 1 mg IVP Q4HR PRN PRN Reason: Pain Methylphenidate HCl (Ritalin) 5 mg PO DAILY [facility] Last Admin: 03/19/18 17:11 Dose: Not Given Mirtazapine (Remeron) 7.5 mg PO HS [facility] Oxycodone/Acetaminophen (Percocet 5-325) 1 each PO Q6HR PRN PRN Reason: pain Last Admin: 03/19/18 11:14 Dose: 1 each Pantoprazole Sodium (Protonix) 40 mg PO AC-BRKFST [facility] Last Admin: 03/19/18 06:44 Dose: 40 mg Potassium Chloride (K-Dur 20) 20 meq PO DAILY [facility] Last Admin: 03/19/18 08:34 Dose: 20 meq Prochlorperazine Maleate (Compazine) 10 mg PO Q6HR PRN PRN Reason: Nausea And Vomiting Last Admin: 03/19/18 01:09 Dose: 10 mg Temazepam (Restoril) 15 mg PO HS PRN PRN Reason: Insomnia Tramadol HCl (Ultram) 50 mg PO Q6H PRN PRN Reason: Pain Last Admin: 03/19/18 04:01 Dose: 50 mg Verapamil HCl (Isoptin Sr) 120 mg PO DAILY [facility] Last Admin: 03/19/18 15:12 Dose: 120 mg Verapamil HCl (Isoptin Sr) 180 mg PO HS [facility] Last Admin: 03/18/18 22:15 Dose: 180 mg Objective - Vital Signs Vital signs: Vital Signs Temp 98.1 F 03/19/18 15:19 Pulse 110 H 03/19/18 16:31 Resp 18 03/19/18 15:19 BP 129/79 03/19/18 15:19 Pulse Ox 93 L 03/19/18 15:19 Intake & Output 03/19/18 03/19/18 03/20/18 06:59 18:59 06:59 Intake Total 20 240 Output Total 400 Balance 20 -160 Weight 94.4 kg Intake: IV 20 0.9 20 Oral 240 Output: Urine 400 Other: # Voids 0 # Bowel Movements 0 - Exam PHYSICAL EXAM: VITAL SIGNS: As above GENERAL: Sitting up at side of bed, respiratory effort increased, trying to initiate cough HEENT: Conjunctivae normal. eyes normal. Oral mucosa dry NECK: No JVD. No thyroid enlargement. No LNs CARDIOVASCULAR: S1, S2 muffled. No murmur RESPIRATION: Breath sounds diminished in the bases. No rhonchi, bibasilar crackles. Right sided dullness, markedly diminished. ABDOMEN: Soft, nontender . No guarding. no masses palpable.Bowel sounds heard. LEGS: No edema. no swelling PSYCHIATRY: Alert and oriented -3, mood and affect normal. NERVOUS SYSTEM: Cranial N 2-12 grossly normal. Moves all 4 limbs. Diffuse weakness No focal deficits. - Labs CBC & Chem 7: 03/19/18 06:27 03/19/18 06:27 Labs: Abnormal Lab Results - Last 24 Hours (Table) 03/19/18 03/19/18 03/19/18 Range/Units 06:27 06:27 06:27 WBC 12.3 H (3.8-10.6) k/uL Hgb 12.9 L (13.0-17.5) gm/dL Plt Count 479 H (150-450) k/uL Neutrophils # 10.5 H (1.3-7.7) k/uL Lymphocytes # 0.8 L (1.0-4.8) k/uL PT 46.9 H (9.0-12.0) sec INR 4.9 H (<1.2) BUN 26 H (9-20) mg/dL Creatinine 0.63 L (0.66-1.25) mg/dL Glucose 125 H (74-99) mg/dL Assessment and Plan Assessment: -Acute recent chest pain with loculated right pleural effusion, possibly malignant, eroded right third posterior rib. New cutoff at level of bronchus, right middle and lower lobe collapse. -Right-sided mesothelioma, progressive. CT reported progressive abestosis related pleural disease with new large right pericardial and supraclavicular lymphadenopathy, new left sided pulmonary nodules. 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 Plan: Continue current medication regime ,monitoring and symptomatic treatment. Discussed with family at length, results of all testing today including CT. Multiple consults initiated, including pulmonary, oncology, oncology and radiation, interventional radiology. Thoracentesis appears to not be an option given loculation, possibly a pigtail drain per IR. Coumadin remains on hold. Close monitoring of PT/INR. Evaluated by psychiatry regarding ongoing depression , no appetite, progressive disease process, recent passing of life, recommendations forthcoming.maintain nebulized bronchodilators.Prognosis guarded given multiple complex medical issues. The impression and plan of care has been dictated as directed. : I performed a history and examination of this patient, discussed the same with the dictator. I agree with the dictator's note ,documented as a scribe. Any additional findings or plans will be noted. Time taken: Greater than 30 minutes Time with Patient: Greater than 30
[2018-03-19] MEDS: MIRTAZAPINE 15 MG TAB PO SCH (21:58)
[2018-03-19] MEDS: PANTOPRAZOLE 40 MG/10 ML VIAL IVP SCH (22:00)
[2018-03-19] MEDS: VERAPAMIL SR 180 MG TABLET.ER PO SCH (22:01)
[2018-03-20] MEDS: HYDROmorphone 1 MG/ML 1 ML SYRINGE IVP PRN ×2 (03:11→08:13)
[2018-03-20] MEDS: traMADol 50 MG TAB PO PRN (06:16)
[2018-03-20 06:59] LABS: INR 1.9 (<1.2); Prothrombin Time 18.8 sec (9.0-12.0)
[2018-03-20 07:06] LABS: Anion Gap 11 mmol/L; Blood Urea Nitrogen 24 mg/dL (9-20); Calcium 9.4 mg/dL (8.4-10.2); Carbon Dioxide 28 mmol/L (22-30); Chloride 102 mmol/L (98-107); Glucose 139 mg/dL (74-99); Potassium 4.8 mmol/L (3.5-5.1); Sodium 141 mmol/L (137-145)
[2018-03-20 07:11] LABS: Basophils % (A) 0 %; Eosinophils % (A) 0 %; HCT 37.7 % (39.0-53.0); HGB 11.8 gm/dL (13.0-17.5); Lymphocytes # (A) 0.5 k/uL (1.0-4.8); Lymphocytes % (A) 3 %; MCH 28.2 pg (25.0-35.0); MCHC 31.3 g/dL (31.0-37.0); MCV 90.3 fL (80.0-100.0); Mean Platelet Volume 6.4; Monocytes # (A) 1.1 k/uL (0-1.0); Monocytes % (A) 7 %; Neutrophils # (A) 13.8 k/uL (1.3-7.7); Neutrophils % (A) 88 %; Platelet Count 535 k/uL (150-450); RBC 4.18 m/uL (4.30-5.90); RDW 14.1 % (11.5-15.5); WBC 15.6 k/uL (3.8-10.6)
[2018-03-20] MEDS: INSULIN ASPART 100 UNIT/ML 1 ML 10 ML VIAL SQ SCH ×4 (07:57→20:49)
[2018-03-20] MEDS: IPRATROPIUM-ALBUTEROL 3 ML NEB INHALATION SCH ×4 (08:06→21:09)
[2018-03-20] MEDS: POTASSIUM CHLORIDE ER 20 MEQ TAB.ER PO SCH (08:13)
[2018-03-20] MEDS: PANTOPRAZOLE 40 MG/10 ML VIAL IVP SCH ×2 (08:13→20:36)
[2018-03-20] MEDS: FUROSEMIDE 40 MG TAB PO SCH (08:13)
[2018-03-20] MEDS: FLUoxetine HCL 10 MG CAP PO SCH (08:13)
[2018-03-20] MEDS: METHYLPHENIDATE HCL 5 MG TAB PO SCH (08:13)
[2018-03-20] MEDS: VERAPAMIL SR 120 MG TABLET.ER PO SCH (08:13)
[2018-03-20 10:54] VITALS: BMI 27.2
[2018-03-20] MEDS ORDERED: MAGNESIUM HYDROXIDE 2,400 MG/10 ML CUP PO PRN ×2 (11:50)
[2018-03-20 11:52] LABS: Glucose,Whole Blood 141 mg/dL (75-99)
[2018-03-20] MEDS ORDERED: MORPHINE ORAL SOLN 10 MG/5 ML CUP PO PRN (12:00)
[2018-03-20] MEDS: MORPHINE SULFATE ER 15 MG TABLET PO SCH ×2 (12:08→20:35)
[2018-03-20] MEDS ORDERED: MORPHINE CONC SOLN 10mg/0.5mL ORAL SYRG PO SCH (14:15)
[2018-03-20] MEDS: MORPHINE ORAL SOLN 10 MG/5 ML CUP PO PRN ×3 (14:16→23:41)
[2018-03-20] MEDS: FOLIC ACID 1 MG TAB PO SCH (14:22)
[2018-03-20] MEDS: SENNOSIDES-DOCUSATE SODIUM 1 EACH TAB PO SCH ×2 (14:22→20:36)
--- NOTE | 2018-03-20 15:40 | P.CONS ---
History of Present Illness - Reason for Consult Consult date: 03/20/18 mesothelioma Requesting physician: Elieser Hand - Chief Complaint right chest pain Review of Systems 14 point ROS as stated in HPI Past Medical History Past Medical History: Atrial Fibrillation, Cancer, Hyperlipidemia, Hypertension , Prostate Disorder, Sleep Apnea/CPAP/BIPAP Additional Past Medical History / Comment(s): hx pleural thickening, cpap, mesothelioma, enlarged prostrate, History of Any Multi-Drug Resistant Organisms: None Reported Past Surgical History: Orthopedic Surgery, Tonsillectomy Additional Past Surgical History / Comment(s): rt knee scope, bilat eye cataract Past Anesthesia/Blood Transfusion Reactions: No Reported Reaction Past Psychological History: Anxiety, Depression Smoking Status: Never smoker Past Alcohol Use History: None Reported Past Drug Use History: None Reported - Past Family History Mother Family Medical History: Cancer Additional Family Medical History / Comment(s): cancer Father Family Medical History: Pneumonia Additional Family Medical History / Comment(s): Mesothelioma Medications and Allergies Home Medications Medication Instructions Recorded Confirmed Type ALPRAZolam [Xanax] 0.25 mg PO DAILY PRN 08/27/17 03/18/18 History Albuterol Inhaler [Ventolin Hfa 1 - 2 puff INHALATION RT-Q6H PRN 08/27/17 History Inhaler] Folic Acid 1 mg PO DAILY 08/27/17 03/18/18 History Mirtazapine 7.5 mg PO HS 08/27/17 09/20/17 History traMADol HCL [Ultram] 50 mg PO Q6H PRN 08/27/17 03/18/18 History Furosemide [Lasix] 40 mg PO DAILY #30 tablet 09/22/17 03/18/18 Rx Potassium Chloride ER [K-Dur 20] 20 meq PO DAILY #30 tab 09/22/17 03/18/18 Rx Prochlorperazine [Compazine] 10 mg PO Q6HR PRN 03/18/18 03/18/18 History Verapamil HCl [Calan] 120 mg PO DAILY 03/18/18 03/18/18 History Verapamil HCl [Verapamil ER] 180 mg PO HS 03/18/18 03/18/18 History Warfarin [Coumadin] 5 mg PO SUMOWEFRSA 03/18/18 03/18/18 History Warfarin [Coumadin] 7.5 mg PO TUTH 03/18/18 03/18/18 History oxyCODONE-APAP 5-325MG [Percocet 1 tab PO Q6HR 03/18/18 03/18/18 History 5-325 mg] Allergies Allergy/AdvReac Type Severity Reaction Status Date / Time No Known Allergies Allergy Verified 03/18/18 16:13 Physical Exam Vitals: Vital Signs Temp Pulse Pulse Resp BP Pulse Ox 03/20/18 11:48 106 H 03/20/18 08:18 100 03/20/18 08:06 100 03/20/18 08:00 98.1 F 106 H 16 118/65 99 03/20/18 04:00 97.7 F 104 H 18 118/68 92 L 03/20/18 00:00 97.6 F 71 18 117/82 96 03/19/18 21:20 108 H 03/19/18 21:10 106 H 03/19/18 20:00 97.7 F 125 H 18 117/83 91 L 03/19/18 16:31 110 H 03/19/18 16:16 108 H 03/19/18 15:19 98.1 F 70 18 129/79 93 L 03/19/18 12:37 120 H 03/19/18 12:27 107 H 16 03/19/18 12:00 98.1 F 74 16 148/70 95 Intake and Output 03/19/18 03/20/18 03/20/18 22:59 06:59 14:59 Output Total 400 800 Balance -400 -800 Output: Urine 400 800 Other: Voiding Method Toilet Toilet # Voids 1 0 # Bowel Movements 0 0 Weight 94.4 kg 93.7 kg - Constitutional General appearance: average body habitus, cooperative, no acute distress - EENT Eyes: anicteric sclerae, EOMI, normal appearance ENT: hearing grossly normal, normal oropharynx - Neck Neck: no lymphadenopathy - Respiratory Respiratory: right: dullness, other (absent breath sounds RML, RLL), left: rales (base) - Cardiovascular Rhythm: irregularly irregular Heart sounds: normal: S1, S2 Abnormal Heart Sounds: no systolic murmur, no diastolic murmur, no rub, no S3 Gallop, no S4 Gallop, no click, no other - Gastrointestinal General gastrointestinal: no absent bowel sounds, no decreased bowel sounds, no distended, no hepatomegaly, no hyperactive bowel sounds, normal bowel sounds, no organomegaly, no rigid, no scaphoid, soft, no splenomegaly, no tenderness, no umbilical hernia, no ventral hernia - Integumentary Integumentary: pale - Neurologic Neurologic: CNII-XII intact - Musculoskeletal Musculoskeletal: generalized weakness, strength equal bilaterally - Psychiatric Psychiatric: A&O x's 3, appropriate affect, intact judgment & insight Results CBC & Chem 7: 03/20/18 06:17 03/20/18 06:17 Labs: Abnormal Lab Results - Last 24 Hours (Table) 03/20/18 03/20/18 03/20/18 Range/Units 06:17 06:17 06:17 WBC 15.6 H (3.8-10.6) k/uL RBC 4.18 L (4.30-5.90) m/uL Hgb 11.8 L (13.0-17.5) gm/dL Hct 37.7 L (39.0-53.0) % Plt Count 535 H (150-450) k/uL Neutrophils # 13.8 H (1.3-7.7) k/uL Lymphocytes # 0.5 L (1.0-4.8) k/uL Monocytes # 1.1 H (0-1.0) k/uL PT 18.8 H (9.0-12.0) sec INR 1.9 H (<1.2) BUN 24 H (9-20) mg/dL Creatinine 0.63 L (0.66-1.25) mg/dL Glucose 139 H (74-99) mg/dL CT scan - chest: report reviewed Assessment and Plan (1) Pleural effusion Narrative/Plan: From my discussion with pt and family the effusion is chronic. Pt was told that even if the fluid was removed that the lung would not likely expand. Pulmonary is following and will discuss risk vs benefit. Pt pain and symptoms seem to be more r/t the disease invading the ribs, which is known and pt was to see Rad Onc about it in the near future. Pt is also supposed to have f/u scan on Sunday to evaluate disease status as he has been off chemo since at least September 2017 due to progressive hematological toxicities. Pt family was asking me about prognosis. We reviewed that progressive/changing symptoms are more likely a sign of disease progression rather then stability. I have asked for Dr. Vines's notes and I may be able to speak with him later today or tomorrow so that appropriate recommendations, options for future care and prognosis can be discussed. We will meet in AM Current Visit: Yes Status: Chronic Priority: Medium Code(s): J90 - PLEURAL EFFUSION, NOT ELSEWHERE CLASSIFIED SNOMED Code(s): 69766149 (2) Coagulopathy Narrative/Plan: This has been corrected, INR 1.9 today. If no procedures planned then ok to resume coumadin Current Visit: Yes Status: Acute Priority: High Code(s): D68.9 - COAGULATION DEFECT, UNSPECIFIED SNOMED Code(s): 28958246 (3) Mesothelioma Current Visit: No Status: Acute Code(s): C45.9 - MESOTHELIOMA, UNSPECIFIED SNOMED Code(s): 233698457 (4) Pain, neoplasm-related Narrative/Plan: Pain medications adjusted, long acting and IR ordered. Pt did better with this combination, less nausea too. Rad Onc to see pt tomorrow. Bowel protocol ordered Current Visit: Yes Status: Acute Priority: High Code(s): G89.3 - NEOPLASM RELATED PAIN (ACUTE) (CHRONIC) SNOMED Code(s): 26552990059297
[2018-03-20 16:30] LABS: Glucose,Whole Blood 161 mg/dL (75-99)
[2018-03-20] MEDS: MIRTAZAPINE 15 MG TAB PO SCH (20:35)
[2018-03-20] MEDS: VERAPAMIL SR 180 MG TABLET.ER PO SCH (20:36)
[2018-03-20] MEDS: methylPREDNISolone SOD SUCCI 125 MG/2 ML VIAL IV SCH ×2 (20:36→23:38)
[2018-03-20 20:45] LABS: Glucose,Whole Blood 135 mg/dL (75-99)
[2018-03-20] MEDS ORDERED: METOPROLOL TARTRATE 25 MG TAB PO SCH ×2 (21:30)
[2018-03-21 05:55] LABS: Glucose,Whole Blood 179 mg/dL (75-99)
[2018-03-21] MEDS: INSULIN ASPART 100 UNIT/ML 1 ML 10 ML VIAL SQ SCH ×2 (06:06→13:27)
[2018-03-21] MEDS: methylPREDNISolone SOD SUCCI 125 MG/2 ML VIAL IV SCH ×2 (07:03→13:27)
[2018-03-21] MEDS: IPRATROPIUM-ALBUTEROL 3 ML NEB INHALATION SCH ×3 (07:07→16:24)
[2018-03-21] MEDS: MORPHINE ORAL SOLN 10 MG/5 ML CUP PO PRN ×2 (07:10→13:43)
[2018-03-21 07:39] LABS: Basophils % (A) 0 %; Eosinophils % (A) 0 %; HCT 33.6 % (39.0-53.0); HGB 10.2 gm/dL (13.0-17.5); Lymphocytes # (A) 0.4 k/uL (1.0-4.8); Lymphocytes % (A) 2 %; MCH 27.4 pg (25.0-35.0); MCHC 30.5 g/dL (31.0-37.0); MCV 89.8 fL (80.0-100.0); Mean Platelet Volume 6.4; Monocytes # (A) 0.3 k/uL (0-1.0); Monocytes % (A) 2 %; Neutrophils # (A) 15.2 k/uL (1.3-7.7); Neutrophils % (A) 95 %; Platelet Count 461 k/uL (150-450); RBC 3.74 m/uL (4.30-5.90)
[2018-03-21 07:43] LABS: INR 1.4 (<1.2)
[2018-03-21 07:58] LABS: Anion Gap 8 mmol/L; Blood Urea Nitrogen 26 mg/dL (9-20); Calcium 9.2 mg/dL (8.4-10.2); Carbon Dioxide 29 mmol/L (22-30); Chloride 101 mmol/L (98-107); Glucose 171 mg/dL (74-99); Potassium 4.7 mmol/L (3.5-5.1); Sodium 138 mmol/L (137-145)
[2018-03-21 12:09] LABS: Glucose,Whole Blood 155 mg/dL (75-99)
--- NOTE | 2018-03-21 12:18 | P.CRDCN ---
History of Present Illness Consult date: 03/21/18 Requesting physician: Kari Cummings Consult reason: atrial fibrillation History of present illness: This is a very pleasant 77-year-old gentleman who follows with Dr. Green as his primary care physician. He has a history of atrial fibrillation anticoagulated with warfarin, hypertension, hyperlipidemia. He also has a history of mesothelioma involving the right lung and obstructive sleep apnea utilizing CPAP in the outpatient setting. He had been receiving chemotherapy up until August 2017. He follows with Dr. Vines at the [facility] for treatments. He had also been following with Dr. Velasco here at [facility] for radiation therapy and his last radiation treatment was about one and half months ago. He presented here to the emergency room yesterday with significant right-sided chest pain. His been getting worse over the past week. It is radiating into the right shoulder and down to his right elbow. He denies any significant shortness of breath, cough or congestion. No hemoptysis. 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 There is also worsening large right- sided pleural effusion as compared to previous x-ray in September. Computed tomography scan revealed asbestos-related pleural disease with known right upper lobe pleural-based mass. Progression is noted with a now a large right pericardial and supraclavicular lymphadenopathy and numerous new left-sided pulmonary nodules. There is a new cutoff at the level of the bronchus intermedius with right middle lobe and lower lobe collapse. There is also noted focal erosion into the posterior right third rib. Patient was seen in consultation on , he is awake and alert, states that today is his best day so far. Pain seems to be under much better control. Yesterday the patient was having ongoing issues with right-sided chest discomfort radiating up to his right shoulder, into his right wrist and right elbow. Overall today his breathing is stable, he denies any chest discomfort, he is afebrile, heart rate today seems to be maintaining in the 70s to 80s. Blood pressure today 102/62 heart rate in the 70s, 92% on 2 L of oxygen. White blood cell count 16.0, hemoglobin 10.2, platelet count 461. INR today 1.4, sodium 138, potassium 4.7, BUN 26, creatinine 0.6. Past Medical History Past Medical History: Atrial Fibrillation, Cancer, Hyperlipidemia, Hypertension , Prostate Disorder, Sleep Apnea/CPAP/BIPAP Additional Past Medical History / Comment(s): hx pleural thickening, cpap, mesothelioma, enlarged prostrate, History of Any Multi-Drug Resistant Organisms: None Reported Past Surgical History: Orthopedic Surgery, Tonsillectomy Additional Past Surgical History / Comment(s): rt knee scope, bilat eye cataract Past Anesthesia/Blood Transfusion Reactions: No Reported Reaction Past Psychological History: Anxiety, Depression Smoking Status: Never smoker Past Alcohol Use History: None Reported Past Drug Use History: None Reported - Past Family History Mother Family Medical History: Cancer Additional Family Medical History / Comment(s): cancer Father Family Medical History: Pneumonia Additional Family Medical History / Comment(s): Mesothelioma Medications and Allergies Home Medications Medication Instructions Recorded Confirmed Type ALPRAZolam [Xanax] 0.25 mg PO DAILY PRN 08/27/17 03/18/18 History Albuterol Inhaler [Ventolin Hfa 1 - 2 puff INHALATION RT-Q6H PRN 08/27/17 History Inhaler] Folic Acid 1 mg PO DAILY 08/27/17 03/18/18 History Mirtazapine 7.5 mg PO HS 08/27/17 09/20/17 History traMADol HCL [Ultram] 50 mg PO Q6H PRN 08/27/17 03/18/18 History Furosemide [Lasix] 40 mg PO DAILY #30 tablet 09/22/17 03/18/18 Rx Potassium Chloride ER [K-Dur 20] 20 meq PO DAILY #30 tab 09/22/17 03/18/18 Rx Prochlorperazine [Compazine] 10 mg PO Q6HR PRN 03/18/18 03/18/18 History Verapamil HCl [Calan] 120 mg PO DAILY 03/18/18 03/18/18 History Verapamil HCl [Verapamil ER] 180 mg PO HS 03/18/18 03/18/18 History Warfarin [Coumadin] 5 mg PO SUMOWEFRSA 03/18/18 03/18/18 History Warfarin [Coumadin] 7.5 mg PO TUTH 03/18/18 03/18/18 History oxyCODONE-APAP 5-325MG [Percocet 1 tab PO Q6HR 12/31/18 12/31/18 History 5-325 mg] Allergies Allergy/AdvReac Type Severity Reaction Status Date / Time No Known Allergies Allergy Verified 03/18/18 16:13 Physical Exam Vitals: Vital Signs Temp Pulse Pulse Resp BP Pulse Ox 03/21/18 04:00 97.9 F 76 18 103/62 92 L 03/20/18 23:37 98 F 100 18 102/74 95 03/20/18 21:44 121 H 16 110/75 94 L 03/20/18 21:20 110 H 03/20/18 21:11 110 H 03/20/18 19:40 97.3 F L 121 H 18 96/65 98 03/20/18 16:00 98.1 F 104 H 16 108/71 95 Intake and Output 03/20/18 03/21/18 03/21/18 22:59 06:59 14:59 Intake Total 30 10 Balance 30 10 Intake: IV 30 10 0.9 30 10 Other: Voiding Method Toilet Toilet # Voids 1 1 # Bowel Movements 0 Weight 93.4 kg PHYSICAL EXAMINATION: GENERAL: 77-year-old frail, thin gentleman in no acute distress at the time of my examination HEENT: Head is atraumatic, normocephalic. Pupils equal, round. Sclera anicteric. Conjunctiva are clear. Mucous membranes of the mouth are moist. Neck is supple. There is no elevated jugular venous pressure. No carotid bruit is heard. HEART EXAMINATION: Heart S1 and S2 irregularly irregular CHEST EXAMINATION: Lungs reveal diminished air entry to the right, prison up, positive rales. ABDOMEN: Soft, nontender. Bowel sounds are heard. No organomegaly noted. EXTREMITIES: 2+ peripheral pulses with no evidence of peripheral edema and no calf tenderness noted. NEUROLOGIC patient is awake, alert and oriented 3 . . Results 03/21/18 06:53 03/21/18 06:53 Coagulation 03/21/18 Range/Units 06:53 PT 14.0 H (9.0-12.0) sec CBC 03/21/18 Range/Units 06:53 WBC 16.0 H (3.8-10.6) k/uL RBC 3.74 L (4.30-5.90) m/uL Hgb 10.2 L (13.0-17.5) gm/dL Hct 33.6 L (39.0-53.0) % Plt Count 461 H (150-450) k/uL Comprehensive Metabolic Panel 03/21/18 Range/Units 06:53 Sodium 138 (137-145) mmol/L Potassium 4.7 (3.5-5.1) mmol/L Chloride 101 (98-107) mmol/L Carbon Dioxide 29 (22-30) mmol/L BUN 26 H (9-20) mg/dL Creatinine 0.68 (0.66-1.25) mg/dL Glucose 171 H (74-99) mg/dL Calcium 9.2 (8.4-10.2) mg/dL Current Medications Generic Name Dose Route Start Last Admin Trade Name Freq PRN Reason Stop Dose Admin Albuterol Sulfate 2.5 mg 03/18/18 21:37 Ventolin Nebulized INHALATION RT-Q6H PRN SHORTNESS OF BREATH Albuterol/Ipratropium 3 ml 03/19/18 08:00 03/21/18 07:07 Duoneb 0.5 Mg-3 Mg/3 Ml Soln INHALATION Not Given RT-QID [facility] Albuterol/Ipratropium 3 ml 03/18/18 23:08 Duoneb 0.5 Mg-3 Mg/3 Ml Soln INHALATION RT-QID PRN Shortness Of Breath Or Wheezing Alprazolam 0.25 mg 03/18/18 21:37 03/19/18 04:01 Xanax PO 0.25 mg DAILY PRN Administration Anxiety Fluoxetine HCl 10 mg 03/19/18 15:30 03/20/18 08:13 Prozac PO 10 mg DAILY [facility] Administration Folic Acid 1 mg 03/19/18 12:00 03/20/18 14:22 Folic Acid PO Not Given DAILY@1200 [facility] Furosemide 40 mg 03/19/18 09:00 03/20/18 08:13 Lasix PO 40 mg DAILY [facility] Administration Insulin Aspart 0 unit 03/20/18 07:30 03/21/18 06:06 Novolog SQ Not Given ACHS [facility] Protocol Magnesium Hydroxide 2,400 mg 03/20/18 11:50 Milk Of Magnesia PO ONCE PRN Constipation Magnesium Hydroxide 2,400 mg 03/20/18 11:50 Milk Of Magnesia PO DAILY PRN Constipation Methylphenidate HCl 5 mg 03/19/18 15:30 03/20/18 08:13 Ritalin PO 5 mg DAILY [facility] Administration Methylprednisolone Sodium Succinate 60 mg 03/20/18 21:36 03/21/18 07:03 Solu-Medrol IV 60 mg Q6HR [facility] Administration Mirtazapine 7.5 mg 03/19/18 21:00 03/20/18 20:35 Remeron PO 7.5 mg HS [facility] Administration Morphine Sulfate 15 mg 03/20/18 12:00 03/20/18 20:35 Ms Contin PO 15 mg Q12HR [facility] Administration Morphine Sulfate 5 mg 03/20/18 14:07 03/21/18 07:10 Morphine Oral Estefani 2mg/Ml PO 5 mg Q4H PRN Administration Pain Pantoprazole Sodium 40 mg 03/19/18 21:45 03/20/18 20:36 Protonix IVP 40 mg BID [facility] Administration Potassium Chloride 20 meq 03/19/18 09:00 03/20/18 08:13 K-Dur 20 PO 20 meq DAILY [facility] Administration Prochlorperazine Maleate 10 mg 03/18/18 21:37 03/19/18 01:09 Compazine PO 10 mg Q6HR PRN Administration Nausea And Vomiting Senna/Docusate Sodium 1 each 03/20/18 12:00 03/20/18 20:36 Senokot-S PO 1 each BID [facility] Administration Temazepam 15 mg 03/18/18 23:10 03/19/18 21:58 Restoril PO 15 mg HS PRN Administration Insomnia Verapamil HCl 120 mg 03/19/18 15:00 03/20/18 08:13 Isoptin Sr PO 120 mg DAILY [facility] Administration Verapamil HCl 180 mg 03/18/18 21:45 03/20/18 20:36 Isoptin Sr PO 180 mg HS [facility] Administration Intake and Output 03/20/18 03/21/18 03/21/18 22:59 06:59 14:59 Intake Total 30 10 Balance 30 10 Intake: IV 30 10 0.9 30 10 Other: Voiding Method Toilet Toilet # Voids 1 1 # Bowel Movements 0 Weight 93.4 kg 03/21/18 06:53 03/21/18 06:53 EKG Interpretations (text) EKG showed atrial fibrillation with incomplete right bundle-branch block pattern and nonspecific ST-T wave changes. Assessment and Plan Plan: Impression and plan: #1 Right-sided chest discomfort secondary to significant right-sided loculated pleural effusion and a history of mesothelioma with erosion into the right third posterior rib. Extensive consolidation of the right upper lobe and a new cutoff level of the bronchus intermedius with right middle and lower lobe collapse. #2 Progression of mesothelioma with a new right paracardial and supraclavicular lymphadenopathy and numerous new left-sided pulmonary nodules. #3 History of mesothelioma last chemotherapy received in August 2017, discontinued due to ongoing issues with atrial fibrillation. He follows with Dr. Vines out of [facility]. The patient was also receiving radiation therapy here with Dr. Vealsco last treatment one and half months ago. #4 Mildly hydropic gallbladder #5 Atrial fibrillation, chronic persistent, anti-quite elated with warfarin, supra therapeutic presenting INR 8.6, currently 1.4. #6 History of congestive heart failure. #7 Hyperlipidemia. #8 Hypertension. #9 Obstructive sleep apnea utilizing CPAP in the outpatient setting. #10 Benign prostatic hypertrophy. Plan We will obtain an echocardiogram with Doppler study. Check a TSH level. Coumadin continues to be on hold at this time, no plans for thoracentesis by pulmonary. Interventional radiology has been consulted for possible pigtail catheter placement. Coumadin will need to be resumed once the catheter is placed. DNP note has been reviewed, I agree with a documented findings and plan of care. Patient was seen and examined.
[2018-03-21 12:32] VITALS: PULSE 116
[2018-03-21 12:33] VITALS: BP 103/64; RESP 16; TEMP 97.6
[2018-03-21] MEDS: FLUoxetine HCL 10 MG CAP PO SCH (12:37)
[2018-03-21] MEDS: FUROSEMIDE 40 MG TAB PO SCH (12:37)
[2018-03-21] MEDS: METHYLPHENIDATE HCL 5 MG TAB PO SCH (12:37)
[2018-03-21] MEDS: MORPHINE SULFATE ER 15 MG TABLET PO SCH (12:38)
[2018-03-21] MEDS: POTASSIUM CHLORIDE ER 20 MEQ TAB.ER PO SCH (12:39)
[2018-03-21] MEDS: VERAPAMIL SR 120 MG TABLET.ER PO SCH (12:39)
[2018-03-21] MEDS: PANTOPRAZOLE 40 MG/10 ML VIAL IVP SCH (12:39)
[2018-03-21] MEDS: SENNOSIDES-DOCUSATE SODIUM 1 EACH TAB PO SCH (12:39)
[2018-03-21] MEDS: FOLIC ACID 1 MG TAB PO SCH (13:25)
--- NOTE | 2018-03-21 15:19 | P.CONS ---
History of Present Illness - Reason for Consult Consult date: 03/21/18 Patient known to me Requesting physician: Elieser Hand - Chief Complaint I have chest pain - History of Present Illness Dave is a pleasant 77 year old who presented in January of [address] of the chest on 02/19/17 visualized calcified pleural plaques, right pleural effusion, and a 4 cm soft tissue mass in the right lung apex measuring [address] guided biopsy on 02/24/17 was consistent with epithleoid mesothelioma. Positive for keratin and CD 15. Negative for WT-1, CAP-1. He received two cycles of carbo/pem and reimaging identified stable disease. He has since completed 4 cycles of carbo/pem and is doing well. CT of the chest was performed on 07/17/17 visualized increase in size of a large pleural effusion. There are adjacent lytic changes of the third right rib posteriorly. He was evaluated by thoracic surgery for consideration of pleurodesis which was deferred. Dave received 2400 cGy in 6 fractions at 400 cGy per fraction between and 08/22/17. He describes significant improvement in his pain no longer requiring pain medications. Dave received cycle 7 of pemetrexed on 09/17/17. He has since been on hold secondary to cardiac rate control issues/hospitalizations. He describes improvement in his energy levels since discontinuing systemic therapy, however, he continues to lose weight. We delivered palliative radiation to the right chestwall/pleura completed on to a total dose of 24 Gy in 6 fractions. He had an initial pain improvement, however, it continued to progress. He presents to the hospital now wiht progressive chest pain radiating to the right arm. His appetite is poor and he has lost 20 lbs since 09/20/2017. He admits to improvement in pain control with his new regimen of long and short acting morphine. Review of Systems Constitutional: Reports chronic pain, Reports poor appetite, Reports weight loss Eyes: denies blurred vision, denies pain Cardiovascular: Reports decreased exercise tolerance, Reports dyspnea on exertion Respiratory: Reports cough, Reports pleurisy Psychiatric: Reports depression Past Medical History Past Medical History: Atrial Fibrillation, Cancer, Hyperlipidemia, Hypertension , Prostate Disorder, Sleep Apnea/CPAP/BIPAP Additional Past Medical History / Comment(s): hx pleural thickening, cpap, mesothelioma, enlarged prostrate, History of Any Multi-Drug Resistant Organisms: None Reported Past Surgical History: Orthopedic Surgery, Tonsillectomy Additional Past Surgical History / Comment(s): rt knee scope, bilat eye cataract Past Anesthesia/Blood Transfusion Reactions: No Reported Reaction Past Psychological History: Anxiety, Depression Smoking Status: Never smoker Past Alcohol Use History: None Reported Past Drug Use History: None Reported - Past Family History Mother Family Medical History: Cancer Additional Family Medical History / Comment(s): cancer Father Family Medical History: Pneumonia Additional Family Medical History / Comment(s): Mesothelioma Medications and Allergies Home Medications Medication Instructions Recorded Confirmed Type ALPRAZolam [Xanax] 0.25 mg PO DAILY PRN 08/27/17 03/18/18 History Albuterol Inhaler [Ventolin Hfa 1 - 2 puff INHALATION RT-Q6H PRN 08/27/17 History Inhaler] Folic Acid 1 mg PO DAILY 08/27/17 03/18/18 History Mirtazapine 7.5 mg PO HS 08/27/17 09/20/17 History Furosemide [Lasix] 40 mg PO DAILY #30 tablet 09/22/17 03/18/18 Rx Potassium Chloride ER [K-Dur 20] 20 meq PO DAILY #30 tab 09/22/17 03/18/18 Rx Prochlorperazine [Compazine] 10 mg PO Q6HR PRN 03/18/18 03/18/18 History Verapamil HCl [Calan] 120 mg PO DAILY 03/18/18 03/18/18 History Verapamil HCl [Verapamil ER] 180 mg PO HS 03/18/18 03/18/18 History Warfarin [Coumadin] 5 mg PO SUMOWEFRSA 03/18/18 03/18/18 History Warfarin [Coumadin] 7.5 mg PO TUTH 03/18/18 03/18/18 History Cefuroxime Axetil [Ceftin] 500 mg PO BID 3 Days #6 tab 03/21/18 Rx FLUoxetine HCL [PROzac] 10 mg PO DAILY #30 cap 03/21/18 Rx Ipratropium-Albuterol Nebulize 3 ml INHALATION RT-QID #120 03/21/18 Rx [Duoneb 0.5 mg-3 mg/3 ml Soln] ampul.neb MORPHINE ORAL VONDA 2mg/mL [Morphine 5 mg PO Q4H PRN ml 03/21/18 Rx Oral Soln 2 MG/ML] Morphine Sulfate ER [Ms Contin] 15 mg PO Q12HR tablet 03/21/18 Rx Pantoprazole Sodium [Protonix] 40 mg PO BID #60 tablet. 03/21/18 Rx Sennosides-Docusate Sodium 1 each PO BID #60 tab 03/21/18 Rx [Senokot-S] predniSONE 10 mg PO DIRECTED #30 tab 03/21/18 Rx Allergies Allergy/AdvReac Type Severity Reaction Status Date / Time No Known Allergies Allergy Verified 03/18/18 16:13 Physical Exam Vitals: Vital Signs Temp Pulse Pulse Resp BP Pulse Ox 03/21/18 12:31 116 H 03/21/18 12:19 115 H 03/21/18 12:00 97.6 F 116 H 16 103/64 95 03/21/18 09:35 122 H 03/21/18 04:00 97.9 F 76 18 103/62 92 L 03/20/18 23:37 98 F 100 18 102/74 95 03/20/18 21:44 121 H 16 110/75 94 L 03/20/18 21:20 110 H 03/20/18 21:11 110 H 03/20/18 19:40 97.3 F L 121 H 18 96/65 98 03/20/18 16:00 98.1 F 104 H 16 108/71 95 Intake and Output 03/21/18 03/21/18 03/21/18 06:59 14:59 22:59 Intake Total 10 Balance 10 Intake: IV 10 0.9 10 Other: Voiding Method Toilet Toilet # Voids 1 Weight 93.4 kg - Constitutional General appearance: average body habitus - EENT Eyes: EOMI - Neck Neck: normal ROM - Respiratory Respiratory: right: diminished, left: CTA - Cardiovascular Rhythm: regular - Gastrointestinal General gastrointestinal: decreased bowel sounds, distended Localized gastrointestinal: tender: midline - Psychiatric Psychiatric: A&O x's 3, appropriate affect Results CBC & Chem 7: 03/21/18 06:53 03/21/18 06:53 Labs: Abnormal Lab Results - Last 24 Hours (Table) 03/20/18 03/20/18 03/21/18 Range/Units 16:23 20:44 05:54 WBC (3.8-10.6) k/uL RBC (4.30-5.90) m/uL Hgb (13.0-17.5) gm/dL Hct (39.0-53.0) % MCHC (31.0-37.0) g/dL Plt Count (150-450) k/uL Neutrophils # (1.3-7.7) k/uL Lymphocytes # (1.0-4.8) k/uL PT (9.0-12.0) sec INR (<1.2) BUN (9-20) mg/dL Glucose (74-99) mg/dL POC Glucose (mg/dL) 161 H 135 H 179 H (75-99) mg/dL 03/21/18 03/21/18 03/21/18 Range/Units 06:53 06:53 06:53 WBC 16.0 H (3.8-10.6) k/uL RBC 3.74 L (4.30-5.90) m/uL Hgb 10.2 L (13.0-17.5) gm/dL Hct 33.6 L (39.0-53.0) % MCHC 30.5 L (31.0-37.0) g/dL Plt Count 461 H (150-450) k/uL Neutrophils # 15.2 H (1.3-7.7) k/uL Lymphocytes # 0.4 L (1.0-4.8) k/uL PT 14.0 H (9.0-12.0) sec INR 1.4 H (<1.2) BUN 26 H (9-20) mg/dL Glucose 171 H (74-99) mg/dL POC Glucose (mg/dL) (75-99) mg/dL 03/21/18 Range/Units 11:50 WBC (3.8-10.6) k/uL RBC (4.30-5.90) m/uL Hgb (13.0-17.5) gm/dL Hct (39.0-53.0) % MCHC (31.0-37.0) g/dL Plt Count (150-450) k/uL Neutrophils # (1.3-7.7) k/uL Lymphocytes # (1.0-4.8) k/uL PT (9.0-12.0) sec INR (<1.2) BUN (9-20) mg/dL Glucose (74-99) mg/dL POC Glucose (mg/dL) 155 H (75-99) mg/dL Assessment and Plan Assessment: Dave Daley is a 77 year old with unresectable mesothelioma who has been off systemic chemotherapy since 09/17/17 secondary to cardiac issues and general performance status decline. He has received two prior courses of palliative radiation for right upper chest wall pain now with progression. Plan: Dave continues to have mild progression of mesothelioma and associated decline. He is scheduled for PET/CT on 03/22/17 and re-evaluation with Dr. Vines ([facility]) on 03/25/17. His pain is controlled on long/ short acting morphine. Since the patient is known to me narcotic scripts were given, MAPS checked, and pain contract was signed. Should Dave not be a candidate for further systemic therapy we would again deliver a short course of palliative radiation and initiate a palliative/hospice care referral. We will see Dave on Sunday03/26/17 at 10am. Time with Patient: Greater than 30
--- NOTE | 2018-03-21 17:36 | DS ---
DISCHARGE SUMMARY FINAL DIAGNOSES: 1. Acute right-sided chest pain because of malignancy and pleural effusion. 2. Loculated right pleural effusion possible malignant eroded right 3rd posterior rib. 3. Right middle and lower lobe collapse. 4. Possibly chronic obstructive pulmonary disease acute exacerbation. 5. Acute purulent tracheobronchitis. 6. Right-sided mesothelioma, progressive CT reported related to pleural disease. 7. Large right pericardial, paratracheal and supraclavicular lymphadenopathy. 8. History of asbestosis. 9. Chronic coagulopathy. 10.Right sided lateral chest pain. 11.Chronic atrial fibrillation. 12.Hypertension. 13.Hyperlipidemia. 14.History of prostate disorder/benign prostatic hypertrophy. 15.History of obstructive sleep apnea. 16.Depression. 17.Mild hydropic gallbladder. 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 DISCHARGE DISPOSITION: The patient is being discharged in stable condition with guarded prognosis. Total time taken: 35 minutes. HISTORY OF PRESENT ILLNESS: This 77-year-old gentleman with a past medical history of multiple medical problems was admitted with right-sided chest pain, shortness of breath and multiple other medical problems. The patient was treated symptomatically. The patient was given IV steroids also and the patient was given empiric antibiotics. Currently the patient has PET scan scheduled at the [facility] which the family would like to attend, so the patient is being discharged in stable condition with guarded prognosis with the following advice and medications. Case discussed at length with the family, understands and agrees with the plan. They would like to have the pigtail catheter and thoracocentesis evaluated in the [facility] rather with the patient' s own oncologist. The patient was seen by multiple consultants. Please refer to multiple consultants for further details. On exam, vital signs are stable. Cardiovascular: S1, S2. Respiratory: A few scattered rhonchi. Abdomen: Soft. Nervous system: No focal deficits. DISCHARGE ADVICE AND MEDICATIONS: 1. Discharge diet is cardiac diet. 2. Activity limited until followup. 3. Follow up with Dr. Green in 2-3 days. 4. Follow up with [facility] as advised. 5. Follow up with Dr. Matthews as advised. MEDICATIONS: 1. Albuterol p.r.n. 2. Xanax 0.5 daily p.r.n. 3. Folic acid 1 mg p.o. daily. 4. Remeron 7.5 mg q.h.s. 5. Compazine 10 mg p.r.n. 6. Calan 120 mg p.o. daily and 180 mg q.h.s. 7. Coumadin 5 mg on Sunday, Sunday, Sunday, Sunday, Sunday and 7.5 mg Sunday and . 8. Ceftin 500 mg p.o. b.i.d. for 3 days. 9. Prozac 10 mg p.o. daily. 10.Lasix 40 mg p.o. daily. 11.DuoNeb q.i.d. and p.r.n. 12.Morphine 2 mg p.r.n. and 5 mg p.r.n. 13.MS Contin 50 mg p.o. b.i.d. 14.Protonix 40 mg p.o. b.i.d. 15.K-Dur 20 mEq p.o. daily. 16.Prednisone taper 40 mg daily for 3 days, 30 for 3 days, 20 for 3 days, 10 for 3 days. 17.Senna 1 tablet p.o. b.i.d. Once again, the patient is being discharged in stable condition with guarded prognosis. MMODL / IJN: [id number] / MTDD
--- NOTE | 2018-03-21 18:04 | P.PN ---
Subjective Progress Note Date: 03/21/18 Principal diagnosis: right chest pain, mesothelioma Pt was sitting up at bedside, family present. He has good pain control on current analgesic regimen, his c/o with previous pain meds-lethargy, "foggy"- are not a problem, he is concerned about BM. I did get his reports for Dr. Vines at [facility] and did discuss case with Dr. Islas Objective - Vital Signs Vital signs: Vital Signs Temp 97.6 F 03/21/18 12:00 Pulse 116 H 03/21/18 12:31 Resp 16 03/21/18 12:00 BP 103/64 03/21/18 12:00 Pulse Ox 95 03/21/18 12:00 Intake & Output 03/20/18 03/21/18 03/21/18 18:59 06:59 18:59 Intake Total 40 Balance 40 Weight 93.7 kg 93.4 kg Intake: IV 40 0.9 40 Other: Voiding Method Toilet Toilet # Voids 1 1 # Bowel Movements 0 - Constitutional Constitutional Comment(s): NAD, respirations even and unlabored General appearance: Present: average body habitus, no acute distress, thin - EENT Eyes: Present: anicteric sclerae ENT: Present: hearing grossly normal - Labs CBC & Chem 7: 03/21/18 06:53 03/21/18 06:53 Labs: Abnormal Lab Results - Last 24 Hours (Table) 03/20/18 03/21/18 03/21/18 Range/Units 20:44 05:54 06:53 WBC 16.0 H (3.8-10.6) k/uL RBC 3.74 L (4.30-5.90) m/uL Hgb 10.2 L (13.0-17.5) gm/dL Hct 33.6 L (39.0-53.0) % MCHC 30.5 L (31.0-37.0) g/dL Plt Count 461 H (150-450) k/uL Neutrophils # 15.2 H (1.3-7.7) k/uL Lymphocytes # 0.4 L (1.0-4.8) k/uL PT (9.0-12.0) sec INR (<1.2) BUN (9-20) mg/dL Glucose (74-99) mg/dL POC Glucose (mg/dL) 135 H 179 H (75-99) mg/dL 03/21/18 03/21/18 03/21/18 Range/Units 06:53 06:53 11:50 WBC (3.8-10.6) k/uL RBC (4.30-5.90) m/uL Hgb (13.0-17.5) gm/dL Hct (39.0-53.0) % MCHC (31.0-37.0) g/dL Plt Count (150-450) k/uL Neutrophils # (1.3-7.7) k/uL Lymphocytes # (1.0-4.8) k/uL PT 14.0 H (9.0-12.0) sec INR 1.4 H (<1.2) BUN 26 H (9-20) mg/dL Glucose 171 H (74-99) mg/dL POC Glucose (mg/dL) 155 H (75-99) mg/dL Assessment and Plan (1) Pleural effusion Status: Chronic Priority: Medium Code(s): J90 - PLEURAL EFFUSION, NOT ELSEWHERE CLASSIFIED SNOMED Code(s): 98307277 (2) Coagulopathy Status: Resolved Priority: High Code(s): D68.9 - COAGULATION DEFECT, UNSPECIFIED SNOMED Code(s): 49597673 (3) Mesothelioma Narrative/Plan: We discussed prognosis of mesothelioma as up to 1 year from diagnosis, pt diagnosed in Feb 2017. That year can be up to 2 years, only if the treatment options available to control disease are effective and if pt can tolerate, which he has not. He has now been off of treatment for 6 months. Each f/u image has shown slight disease progression, pt is now having more symptoms- increased pain, wt. loss-so unfortunately it is likely that his disease is progressing. The options then become resume previous chemo, which he did not tolerate, clinical trial, which his heart condition will likely keep him from being a candidate or focus on symptom control and quality of life vs quantity. Pt had numerous questions that made me wonder if he really understands that his condition is terminal, I was very david during our discussion but, his understanding of my explanations I cannot be certain. Pt is due for scan tomorrow and f/u at [facility] on [address], which I encouraged him to do so that he could see what his treating Oncologist has to offer and what his recommendations are. He and his family verbalized understanding, all questions answered to the best of my ability Status: Acute Code(s): C45.9 - MESOTHELIOMA, UNSPECIFIED SNOMED Code(s): 689490731 (4) Pain, neoplasm-related Narrative/Plan: Current analgesics are providing adequate relief. Pt has established relationship with Dr. Islas who agreed to provide opioid Rx. Pt encouraged to have a scheduled bowel regimen Status: Acute Priority: High Code(s): G89.3 - NEOPLASM RELATED PAIN (ACUTE) (CHRONIC) SNOMED Code(s): 80944536891050 Time with Patient: Greater than 30 (>35 min spent with pt, >50% was counseling/ coordinating care)
--- NOTE | 2018-03-21 20:16 | P.PN ---
Subjective Progress Note Date: 03/20/18 Progress note being dictated for . Interval history: This a 77-year-old gentleman admitted with acute severe chest pain, possible right pleural effusion possible malignancy, right-sided mesothelioma, history of asbestosis, depression with recent passing of in June 2017, and multiple other medical issues. Received vitamin K with INR down to 4.9. Maintaining O2 sats in the mid 90s on room air. Afebrile. WBC 12.3. Telemetry atrial fibrillation, controlled at rest. Heart rate up to the 160s with activity. Chest x-ray reporting near complete opacification of right hemothorax on background of up acidosis related pleural disease, worsening large right-sided pleural effusion. CT reported loculated fluid, progressive abestosis related pleural disease with new large right pericardial and supraclavicular lymphadenopathy, new left-sided pulmonary nodules, new cutoff at the level of the bronchus with right middle and lower lobe collapse,eroded right third rib, increasing descending aorta mild aneurysm 3.3 cm. Incidental finding of hydropic gallbladder possibly related to poor diet intake. Receiving Ultram, Dilaudid, Percocet for right lateral radiating chest pain. 03/20/18 breathing easier this morning, maintaining O2 sats in the 90s on 2 L nasal cannula. INR down to 1.9. Telemetry atrial fibrillation with better controlled ventricular rate. Has followed previously with Dr. Islas for palliative radiation. Evaluated by oncology with pain management recommendations noted. Currently having right lateral sided chest pain radiating to shoulder /arm. Roxanol ordered in addition to long-acting morphine .Telemetry atrial fibrillation with heart rates in the low 100s. Potential pigtail drain with interventional radiology being discussed. Patient does have a follow-up Pet CT scheduled for Sunday at [facility]. Objective - Vital Signs Vital signs: Vital Signs Temp 97.3 F L 03/20/18 19:40 Pulse 121 H 03/20/18 21:44 Resp 16 03/20/18 21:44 BP 110/75 03/20/18 21:44 Pulse Ox 94 L 03/20/18 21:44 Intake & Output 03/20/18 03/20/18 03/21/18 06:59 18:59 06:59 Intake Total 30 Output Total 800 Balance -800 30 Weight 94.4 kg 93.7 kg Intake: IV 30 0.9 30 Output: Urine 800 Other: Voiding Method Toilet Toilet # Voids 0 1 # Bowel Movements 0 0 - Exam PHYSICAL EXAM: VITAL SIGNS: As above GENERAL: Sitting up at side of bed, no acute distress HEENT: Conjunctivae normal. eyes normal. Oral mucosa dry NECK: No JVD. No thyroid enlargement. No LNs CARDIOVASCULAR: S1, S2 muffled. Irregular, tachycardic, No murmur RESPIRATION: Breath sounds diminished in the bases. No rhonchi, bibasilar crackles. Right sided dullness. ABDOMEN: Soft, nontender . No guarding. no masses palpable.Bowel sounds heard. LEGS: No edema. no swelling PSYCHIATRY: Alert and oriented -3, mood and affect normal. NERVOUS SYSTEM: Cranial N 2-12 grossly normal. Moves all 4 limbs. Diffuse weakness No focal deficits. - Labs CBC & Chem 7: 03/21/18 06:53 03/21/18 06:53 Labs: Abnormal Lab Results - Last 24 Hours (Table) 03/20/18 03/20/18 03/20/18 Range/Units 06:17 06:17 06:17 WBC 15.6 H (3.8-10.6) k/uL RBC 4.18 L (4.30-5.90) m/uL Hgb 11.8 L (13.0-17.5) gm/dL Hct 37.7 L (39.0-53.0) % Plt Count 535 H (150-450) k/uL Neutrophils # 13.8 H (1.3-7.7) k/uL Lymphocytes # 0.5 L (1.0-4.8) k/uL Monocytes # 1.1 H (0-1.0) k/uL PT 18.8 H (9.0-12.0) sec INR 1.9 H (<1.2) BUN 24 H (9-20) mg/dL Creatinine 0.63 L (0.66-1.25) mg/dL Glucose 139 H (74-99) mg/dL POC Glucose (mg/dL) (75-99) mg/dL 03/20/18 03/20/18 03/20/18 Range/Units 11:48 16:23 20:44 WBC (3.8-10.6) k/uL RBC (4.30-5.90) m/uL Hgb (13.0-17.5) gm/dL Hct (39.0-53.0) % Plt Count (150-450) k/uL Neutrophils # (1.3-7.7) k/uL Lymphocytes # (1.0-4.8) k/uL Monocytes # (0-1.0) k/uL PT (9.0-12.0) sec INR (<1.2) BUN (9-20) mg/dL Creatinine (0.66-1.25) mg/dL Glucose (74-99) mg/dL POC Glucose (mg/dL) 141 H 161 H 135 H (75-99) mg/dL Assessment and Plan Assessment: -Acute recent chest pain with loculated right pleural effusion, possibly malignant, eroded right third posterior rib. New cutoff at level of bronchus, right middle and lower lobe collapse. -Right-sided mesothelioma, progressive. CT reported progressive abestosis related pleural disease with new large right pericardial and supraclavicular lymphadenopathy, new left sided pulmonary nodules. 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 Plan: Continue current medication regime ,monitoring and symptomatic treatment. Pulmonary/oncology discussing risks and benefits of pigtail drain. Oncology radiology to also evaluate patient in a.m. as mentioned above patient does have a follow-up scan scheduled at [facility] on Sunday. If we can get pain under control, and pending multiple consults recommendations, possibly discharge patient tomorrow facilitating him to proceed with this follow-up scan at [facility] on Sunday. Prognosis guarded given multiple complex medical issues. The impression and plan of care has been dictated as directed. : I performed a history and examination of this patient, discussed the same with the dictator. I agree with the dictator's note ,documented as a scribe. Any additional findings or plans will be noted. Time taken: Greater than 30 minutes
== END 2018-03-21 16:27 | disposition home health service (06) | DRG 844 ==
LOC: EC 12:11 → 3SCARD 16:24
PROVIDERS: ADMIT Hospitalist; ATTEND Hospitalist
DX: C45.7 Mesothelioma of other sites (principal); K82.1 Hydrops of gallbladder; J44.1 Chronic obstructive pulmonary disease with (acute) exacerbation; J98.19 Other pulmonary collapse; J94.2 Hemothorax; C79.51 Secondary malignant neoplasm of bone; J91.0 Malignant pleural effusion; I71.2 Thoracic aortic aneurysm, without rupture; I11.0 Hypertensive heart disease with heart failure; I48.2 Chronic atrial fibrillation; I50.9 Heart failure, unspecified; J20.9 Acute bronchitis, unspecified; D64.9 Anemia, unspecified; E78.5 Hyperlipidemia, unspecified; F32.9 Major depressive disorder, single episode, unspecified; F41.9 Anxiety disorder, unspecified; G47.33 Obstructive sleep apnea (adult) (pediatric); G89.3 Neoplasm related pain (acute) (chronic); N40.0 Benign prostatic hyperplasia without lower urinary tract symptoms; M19.90 Unspecified osteoarthritis, unspecified site; M25.529 Pain in unspecified elbow; R59.0 Localized enlarged lymph nodes; R79.1 Abnormal coagulation profile; D72.829 Elevated white blood cell count, unspecified; Z77.090 Contact with and (suspected) exposure to asbestos; Z79.01 Long term (current) use of anticoagulants; Z79.899 Other long term (current) drug therapy; Z92.21 Personal history of antineoplastic chemotherapy; Z98.42 Cataract extraction status, left eye; Z98.41 Cataract extraction status, right eye; Z96.1 Presence of intraocular lens; Z80.9 Family history of malignant neoplasm, unspecified; Z83.6 Family history of other diseases of the respiratory system
CPT/HCPCS: 36415; 71046; 71250; 76604; 80048; 80053; 81003; 82550; 82553; 83735; 84484; 85025; 85379; 85610; 85730; 93005; 94640; 94760; 96361; 96374; 96375; 96376; 99285